=== PATIENT | male | born 1990 | race American Indian/Alaskan Native ===

== ENCOUNTER 2017-01-01 18:54 | Emergency (ER) | payer OTHER ==
[2017-01-01 20:09] LABS: Basophils % (Auto) 0.2 % (0.0-1.8); Eosinophils % (Auto) 2.3 % (0.0-4.3); Hematocrit 42.6 % (35.5-45.6); Hemoglobin 14.3 gm/dl (11.8-15.2); Mean Corpuscular HGB Conc 34 % (32-34); Mean Corpuscular Hemoglobin 31 pg (28-32); Mean Corpuscular Volume 93 fl (84-94); Platelet Count 209 K/mm3 (140-440); Red Blood Count 4.59 M/mm3 (3.65-5.03); Red Cell Distribution Width 13.4 % (13.2-15.2); White Blood Count 8.4 K/mm3 (4.5-11.0)
[2017-01-01 20:28] LABS: Potassium 4.7 mmol/L (3.6-5.0); Sodium 142 mmol/L (137-145)
[2017-01-01 20:29] LABS: Anion Gap 18 mmol/L; Blood Urea Nitrogen 15 mg/dL (9-20); Calcium 8.8 mg/dL (8.4-10.2); Carbon Dioxide 23 mmol/L (22-30); Glucose 91 mg/dL (75-100)
[2017-01-02] MEDS ORDERED: TORADOL IM ONE (01:34)
--- NOTE | 2017-01-02 01:39 | Emergency Department Report ---
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 Describes his pain as sharp and aching in nature sometimes denied any fever or shortness of breath or cough. MD Complaint: chest pain -: Gradual, month(s) Pain Location: substernal, left chest, right chest, epigastric Pain Radiation: back Severity scale (0 -10): 7 Quality: sharp, dull - Related Data Previous Rx's Medication Instructions Recorded Last Taken Type Metaxalone [Skelaxin] 800 mg PO TID #30 tablet 01/02/17 Unknown Rx Naproxen [Naprosyn] 500 mg PO BID #14 tablet 01/02/17 Unknown Rx Allergies Allergy/AdvReac Type Severity Reaction Status Date / Time No Known Allergies Allergy Unverified 01/01/17 19:40 Heart Score - HEART Score History: Slightly suspicious EKG: Normal Age: < 45 Risk factors: No known risk factors Troponin: < normal limit HEART Score: 0 - Critical Actions Critical Actions: 0-3 pts:0.9-1.7%risk of adverse cardiac event.Candidate for discharge ED Review of Systems ROS: Stated complaint: ON JOB INJURY, BACK AND CHEST PAIN Other details as noted in HPI Comment: All other systems reviewed and negative Constitutional: denies: chills, fever Respiratory: denies: cough, shortness of breath Cardiovascular: chest pain. denies: palpitations Endocrine: denies: excessive sweating Gastrointestinal: denies: abdominal pain, nausea, vomiting Genitourinary: denies: dysuria, frequency Neurological: denies: headache, weakness, numbness, paresthesias ED Past Medical Hx - Past Medical History Previous Medical History?: Yes Hx Asthma: Yes - Surgical History Past Surgical History?: No - Social History Smoking Status: Light Tobacco Smoker Substance Use Type: Alcohol - Medications Home Medications: Home Medications Medication Instructions Recorded Confirmed Last Taken Type Metaxalone [Skelaxin] 800 mg PO TID #30 tablet 01/02/17 Unknown Rx Naproxen [Naprosyn] 500 mg PO BID #14 tablet 01/02/17 Unknown Rx ED Physical Exam - General Limitations: No Limitations General appearance: alert, in no apparent distress - Head Head exam: Present: atraumatic, normocephalic - Eye Eye exam: Present: normal appearance - ENT ENT exam: Present: normal exam - Neck Neck exam: Present: normal inspection - Respiratory Respiratory exam: Present: normal lung sounds bilaterally, chest wall tenderness. Absent: respiratory distress, wheezes, rales, rhonchi, decreased breath sounds, prolonged expiratory - Cardiovascular Cardiovascular Exam: Present: regular rate, normal rhythm, normal heart sounds - GI/Abdominal GI/Abdominal exam: Present: soft. Absent: tenderness, guarding, rebound - Back Exam Back exam: Present: normal inspection, muscle spasm. Absent: tenderness, CVA tenderness (R), CVA tenderness (L), paraspinal tenderness, vertebral tenderness - Neurological Exam Neurological exam: Present: alert, oriented X3, CN II-XII intact - Skin Skin exam: Present: warm ED Course Vital Signs 01/01/17 01/01/17 01/01/17 19:35 23:45 23:46 Temperature 98.5 F 98.8 F Pulse Rate 64 52 L 52 L Respiratory 16 18 Rate Blood Pressure 106/66 114/66 114/66 Blood Pressure [Left] O2 Sat by Pulse 100 100 100 Oximetry 01/02/17 01/02/17 01/02/17 00:41 00:45 00:48 Temperature Pulse Rate 59 L 66 66 Respiratory 16 17 Rate Blood Pressure Blood Pressure 120/73 [Left] O2 Sat by Pulse 100 98 Oximetry 01/02/17 01/02/17 01/02/17 01:01 01:31 02:01 Temperature Pulse Rate 61 70 61 Respiratory 16 12 20 Rate Blood Pressure 104/53 104/53 97/56 Blood Pressure [Left] O2 Sat by Pulse 95 98 97 Oximetry - Reevaluation(s) Reevaluation #1: 01/02/17 02:38 Patient stated that he is feeling much better after Toradol shot. I advised patient to follow up with his primary care physician if his condition did not improve he needs to come back to the ER. ED Medical Decision Making - Lab Data Result diagrams: 01/01/17 19:56 01/01/17 19:56 Critical care attestation.: If time is entered above; I have spent that time in minutes in the direct care of this critically ill patient, excluding procedure time. ED Disposition Clinical Impression: Atypical chest pain, Costochondritis, acute Disposition: DC-01 TO HOME OR SELFCARE Is pt being admited?: No Condition: Stable Instructions: Chest Pain (ED), Costochondritis (ED) Referrals: PRIMARY CARE,MD [Primary Care Provider] - 3-5 Days
[2017-01-02 02:06] VITALS: BP 97/56
--- NOTE | 2017-01-02 08:37 | XRay Report ---
CHEST ONE VIEW INDICATION: Chest pain for 3 months, increased over 2-3 days. COMPARISON: 04/20/2008. FINDINGS: Portable, single, frontal chest radiograph demonstrates normal cardiomediastinal silhouette. Clear lungs. Unremarkable bones. Extrinsic EKG leads. CONCLUSION: No acute disease in the chest. Thank you for the opportunity to participate in this patient's care.
== END 2017-01-02 03:04 | disposition home or self-care (01) ==
LOC: ED 18:54
DX: M94.0 Chondrocostal junction syndrome [Tietze] (principal); R07.89 Other chest pain; J45.909 Unspecified asthma, uncomplicated; F17.210 Nicotine dependence, cigarettes, uncomplicated
CPT/HCPCS: 36415; 71010; 80048; 84484; 85025; 93005; 93010; 96372; 99284; J1885

== ENCOUNTER 2021-02-24 16:15 | Inpatient (IN) | payer SELFPAY ==
[2021-02-24] MEDS ORDERED: SODIUM CHLORIDE 0.9% 1000 ML IV SOLN IV ONE (16:28)
[2021-02-24] MEDS ORDERED: HYDROcodone/ACETAMINOPHEN 7.5-325MG TAB PO ONE (16:28)
[2021-02-24] MEDS ORDERED: CLINDAMYCIN 600 MG/50 mL 600 MG/50 ML BAG IV ONE (16:28)
[2021-02-24] MEDS ORDERED: TETANUS,DIPH,PERTUSS(ACELL) VACCINE 0.5 ML SYRINGE IM ONE (16:30)
--- NOTE | 2021-02-24 16:30 | Event Note ---
ED Screening Note ED Screening Note: Patient is a 30-year-old male presents emergency room with complaints of a a bump present to his left calf that occurred 3 to 4 days ago He states he manually expressed it with his hand States that he began having calf pain, swelling, redness around the site where the bump was present He is unsure of his last tetanus immunization This initial assessment/diagnostic orders/clinical plan/treatment(s) is/are subject to change based on patients health status, clinical progression and re- assessment by fellow clinical providers in the ED. Further treatment and workup at subsequent clinical providers discretion. Patient/guardian urged not to elope from the ED as their condition may be serious if not clinically assessed and managed. Initial orders include: code sepsis initiated due to fever, tachycardia with infection present
[2021-02-24] MEDS ORDERED: HYDROmorphone 1 MG/1 ML INJ IV ONE ×3 (16:37→20:12)
[2021-02-24] MEDS ORDERED: cefTRIAXone/NS 1 GM/50 ML 1 GM/50 ML BAG IV ONE (16:37)
[2021-02-24] MEDS ORDERED: ACETAMINOPHEN 325 MG TAB PO ONE (16:37)
--- NOTE | 2021-02-24 16:42 | Emergency Department Report ---
ED Lower Extremity HPI - General Chief Complaint: Extremity Injury, Lower Stated Complaint: LT CALF PAIN Time Seen by Provider: 02/24/21 16:26 Source: patient, RN notes reviewed, old records reviewed Mode of arrival: Wheelchair Limitations: Physical Limitation - History of Present Illness Initial Comments: The patient is a 30-year-old gentleman. 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 The patient presents to the ER today with a complaint of nontraumatic left posterior calf pain, redness, swelling and fever. The patient reports that he had a bite ying on his left posterior calf a few days ago, and he scratched it. Shortly thereafter, he developed redness, pus, streaking, swelling and tightness. The patient denies headache, neck pain, chest pain, abdominal pain, shortness of breath, nausea, vomiting and diarrhea. He denies extremity weakness and numbness. The pain is sharp, throbbing and aching. It is localized to the calf it increases with palpation and range of motion. It decreases with rest and hydromorphone. MD Complaint: other -: days(s) Injury: Leg: Left Type of Injury: unknown (Patient thinks that he scratched the surface) Severity: severe Improves With: rest Worsens With: movement, palpation - Related Data Previous Rx's Medication Instructions Recorded Last Taken Type Ketorolac [Toradol] 10 mg PO TID PRN #15 tablet 02/15/21 Unknown Rx Ondansetron [Zofran Odt] 4 mg PO Q8HR #15 tab.rapdis 02/15/21 Unknown Rx Pantoprazole [Protonix] 40 mg PO QDAY #30 tablet 02/15/21 Unknown Rx Allergies Allergy/AdvReac Type Severity Reaction Status Date / Time No Known Allergies Allergy Verified 02/24/21 16:17 ED Review of Systems ROS: Stated complaint: LT CALF PAIN Other details as noted in HPI Constitutional: fever, malaise, weakness Eyes: denies: eye discharge ENT: denies: epistaxis Respiratory: denies: cough Cardiovascular: denies: chest pain Gastrointestinal: denies: abdominal pain Musculoskeletal: arthralgia, myalgia Skin: rash, lesions Psychiatric: anxiety ED Past Medical Hx - Past Medical History Hx Asthma: Yes - Surgical History Past Surgical History?: No - Social History Smoking Status: Current Every Day Smoker - Medications Home Medications: Home Medications Medication Instructions Recorded Confirmed Last Taken Type Ketorolac [Toradol] 10 mg PO TID PRN #15 tablet 02/15/21 Unknown Rx Ondansetron [Zofran Odt] 4 mg PO Q8HR #15 tab.rapdis 02/15/21 Unknown Rx Pantoprazole [Protonix] 40 mg PO QDAY #30 tablet 02/15/21 Unknown Rx ED Physical Exam - General Limitations: Physical Limitation General appearance: alert, anxious, in distress - Head Head exam: Present: atraumatic, normocephalic - Eye Eye exam: Present: normal appearance, EOMI. Absent: nystagmus - ENT ENT exam: Present: normal exam, normal orophraynx, mucous membranes moist, normal external ear exam - Neck Neck exam: Present: normal inspection, full ROM. Absent: tenderness, meningismus - Respiratory Respiratory exam: Present: normal lung sounds bilaterally. Absent: respiratory distress, wheezes, rales, rhonchi, stridor, decreased breath sounds - Cardiovascular Cardiovascular Exam: Present: normal rhythm, tachycardia, normal heart sounds. Absent: bradycardia, irregular rhythm, systolic murmur, diastolic murmur, rubs, gallop - GI/Abdominal GI/Abdominal exam: Present: soft. Absent: distended, tenderness, guarding, sumaya ound, rigid, pulsatile mass - Rectal Rectal exam: Present: deferred - Extremities Exam Extremities exam: Present: full ROM, tenderness (Left posterior calf is tender, erythematous and tense. There is no pain with passive range of motion of the great toe, ankle, knee, or hip.), normal capillary refill, calf tenderness (The left calf is tender), other (2+ pulses noted in the bilateral upper and lower extremities. There is no long bony tenderness. The bilateral upper extremities and right lower extremity are nontender. The muscular compartments are soft.). Absent: normal inspection (There is left calf erythema, induration and tenderness.) - Back Exam Back exam: Present: normal inspection. Absent: tenderness, CVA tenderness (R), CVA tenderness (L), paraspinal tenderness, vertebral tenderness - Neurological Exam Neurological exam: Present: alert, other (No facial droop. Tongue midline. Extraocular movements intact bilaterally. Facial sensation intact to light touch in V1, V2, V3 distribution bilaterally. 5 and a 5 strength in 4 extremities. Sensation intact to light touch in 4 extremities.). Absent: motor sensory deficit - Psychiatric Psychiatric exam: Present: anxious - Skin Skin exam: Present: warm (Punctate bite lesion noted on the left posterior calf), erythema, other (Induration) - Other Other exam information: The left posterior proximal calf muscle is tense. The anterior tibial compartme nts are nontender. The distal lower extremity is nontender. There is no pain with passive range of motion of the foot, ankle, toe, or knee. ED Course Vital Signs 02/24/21 16:21 Temperature 101.6 F H Pulse Rate 114 H Respiratory 18 Rate Blood Pressure 123/74 O2 Sat by Pulse 96 Oximetry - Reevaluation(s) Reevaluation #1: 02/24/21 18:28 Differential diagnosis, including but not limited to: Cellulitis, abscess, myositis, necrotizing fasciitis Assessment and plan: 30-year-old gentleman with left posterior calf redness, tenderness, fever, leukocytosis, normal CK, no pain with passive range of motion of the joint, ankle, foot, knee, or toe, compartment syndrome is less likely, cellulitis and perhaps myositis are more likely. Patient ruling in for sepsis criteria manifested by fever, tachycardia, leukocytosis, and clinical concern for infection. Code sepsis called overhead. Patient to be medicated empirically with ceftriaxone and vancomycin. IV fluids ordered, Tylenol ordered, CT scan of the left lower extremity has been ordered to assess for surgical pathology. Patient to be admitted to the medical service once initial diagnostics have resulted. 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 Reassess after CT scan of the left lower extremity has been resulted. 02/24/21 19:30 CT scan left lower extremity reviewed and appreciated. No abscess or fluid collection is noted. Consistent with cellulitis. Contacted general surgeon on-call, Dr. Chen. Discussed the patient's history, physical, laboratory studies, CT scan findings and clinical impression. He will follow in consultation. Reassessed the patient. He feels improved. Still having pain and tenderness, but examination improved. Still not having any pain with passive range of motion of the toes. At this point time, given CT scan findings, normal lactic acid, normal CK, lack of pain with passive range of motion, neurovascular integrity and appropriate pulses, I do not suspect compartment syndrome at this time. Patient is agreeable to admission hospitalization. Hospital physician, Dr. Kristen Bunch to admit to [facility] ED Lower Extremity MDM - Lab Data Result diagrams: 02/24/21 17:11 02/24/21 17:11 Vital Signs 02/24/21 16:21 Temperature 101.6 F H Pulse Rate 114 H Respiratory 18 Rate Blood Pressure 123/74 O2 Sat by Pulse 96 Oximetry Lab Results 02/24/21 02/24/21 02/24/21 Range/Units 17:11 17:11 17:22 WBC 19.6 H (4.5-11.0) K/mm3 RBC 4.41 (3.65-5.03) M/mm3 Hgb 14.1 (11.8-15.2) gm/dl Hct 42.1 (35.5-45.6) % MCV 96 H (84-94) fl MCH 32 (28-32) pg MCHC 34 (32-34) % RDW 13.4 (13.2-15.2) % Plt Count 194 (140-440) K/mm3 Lymph % (Auto) 5.0 L (13.4-35.0) % [place] % (Auto) 13.3 H (0.0-7.3) % Eos % (Auto) 0.0 (0.0-4.3) % Baso % (Auto) 0.2 (0.0-1.8) % Lymph # (Auto) 1.0 L (1.2-5.4) K/mm3 [place] # (Auto) 2.6 H (0.0-0.8) K/mm3 Eos # (Auto) 0.0 (0.0-0.4) K/mm3 Baso # (Auto) 0.0 (0.0-0.1) K/mm3 Seg Neutrophils % 81.5 H (40.0-70.0) % Seg Neutrophils # 16.0 H (1.8-7.7) K/mm3 Sodium 135 L (137-145) mmol/L Potassium 3.9 (3.6-5.0) mmol/L Chloride 99.3 (98-107) mmol/L Carbon Dioxide 22 (22-30) mmol/L Anion Gap 18 mmol/L BUN 7 L (9-20) mg/dL Creatinine 0.8 (0.8-1.3) mg/dL Estimated GFR > 60 ml/min BUN/Creatinine Ratio 9 % Glucose 106 H (75-100) mg/dL Lactic Acid 1.80 (0.7-2.0) mmol/L Calcium 9.5 (8.4-10.2) mg/dL Magnesium 1.70 (1.7-2.3) mg/dL Total Bilirubin 1.10 (0.1-1.2) mg/dL AST 13 (5-40) units/L ALT 9 (7-56) units/L Alkaline Phosphatase 63 (35-129) units/L Total Creatine Kinase 161 (55-170) units/L Total Protein 6.9 (6.3-8.2) g/dL Albumin 4.1 (3.9-5) g/dL Albumin/Globulin Ratio 1.5 % - Radiology Data Radiology results: pending, report reviewed, image reviewed DUPLEX DOPPLER LOWER EXTREMITY VEINS, LEFT INDICATION / CLINICAL INFORMATION: Left leg pain and swelling for 4 days. TECHNIQUE: Duplex doppler imaging was performed through the veins of the left lower extremity using venous compression and other maneuvers. COMPARISON: None available. FINDINGS: LEFT COMMON FEMORAL VEIN: Negative. LEFT FEMORAL VEIN: Negative. LEFT POPLITEAL VEIN: Negative. LEFT CALF VEINS: Negative. ADDITIONAL FINDINGS: No abnormal mass or fluid collection is seen. IMPRESSION: No sonographic evidence for DVT in the left lower extremity. Signer Name: Elton Garza MD Signed: 02/24/2021 5:23 PM Workstation Name: [id number] CT LEFT lower leg WITHOUT CONTRAST INDICATION / CLINICAL INFORMATION: left leg pain, infection. TECHNIQUE: All CT scans at this location are performed using CT dose reduction for ALARA by means of automated exposure control. 100 cc of Omnipaque 300 COMPARISON: None available. FINDINGS: BONES: No fracture. No osseous lesion. No periosteal reaction. MUSCLES / TENDONS: No significant abnormality. SOFT TISSUES: There is edema in the soft tissue along the periphery of the gastrocnemius and in the subcutaneous fat. No discrete fluid collection is seen. No abnormal enhancement is seen. VISUALIZED JOINTS: No significant abnormality. ADDITIONAL FINDINGS: None. IMPRESSION: 1. There is edema in the soft tissues along the posterior aspect of the gastrocnemius muscle and there is edema in the subcutaneous fat. No enhancing fluid collection is seen. Signer Name: Brian Wan MD Signed: 02/24/2021 6:06 PM Workstation Name: [id number] Critical Care Time: Yes Critical care time in (mins) excluding proc time.: 35 Critical care attestation.: If time is entered above; I have spent that time in minutes in the direct care of this critically ill patient, excluding procedure time. ED Disposition Clinical Impression: Left leg pain, Sepsis, Left leg cellulitis Disposition: ADMITTED INPATIENT Is pt being admited?: Yes Does the pt Need Aspirin: No Condition: Good Referrals: PRIMARY CARE, [Primary Care Provider] - 3-5 Days
[2021-02-24] MEDS ORDERED: VANCOMYCIN/NS 1 GM/250 ML 1 GM/250 ML BAG IV NR (17:00)
[2021-02-24 17:44] LABS: Basophils % (Auto) 0.2 % (0.0-1.8); Hematocrit 42.1 % (35.5-45.6); Hemoglobin 14.1 gm/dl (11.8-15.2); Mean Corpuscular HGB Conc 34 % (32-34); Mean Corpuscular Volume 96 fl (84-94); Monocytes # (Auto) 2.6 K/mm3 (0.0-0.8); Monocytes % (Auto) 13.3 % (0.0-7.3); Platelet Count 194 K/mm3 (140-440); Red Blood Count 4.41 M/mm3 (3.65-5.03); Red Cell Distribution Width 13.4 % (13.2-15.2)
[2021-02-24 17:57] LABS: Alanine Aminotransferase 9 units/L (7-56); Albumin 4.1 g/dL (3.9-5); BUN/Creatinine Ratio 9; Blood Urea Nitrogen 7 mg/dL (9-20); Calcium 9.5 mg/dL (8.4-10.2); Hemolysis Index 4
--- NOTE | 2021-02-24 18:28 | Vascular Lab Report ---
DUPLEX DOPPLER LOWER EXTREMITY VEINS, LEFT INDICATION / CLINICAL INFORMATION: Left leg pain and swelling for 4 days. TECHNIQUE: Duplex doppler imaging was performed through the veins of the left lower extremity using venous compr ession and other maneuvers. COMPARISON: None available. FINDINGS: LEFT COMMON FEMORAL VEIN: Negative. LEFT FEMORAL VEIN: Negative. LEFT POPLITEAL VEIN: Negative. LEFT CALF VEINS: Negative. ADDITIONAL FINDINGS: No abnormal mass or fluid collection is seen. IMPRESSION: No sonographic evidence for DVT in the left lower extremity. Signer Name: Elton Garza MD Signed: 02/24/2021 6:23 PM Workstation Name: [id number]
--- NOTE | 2021-02-24 19:11 | Cat Scan Report ---
CT LEFT lower leg WITHOUT CONTRAST INDICATION / CLINICAL INFORMATION: left leg pain, infection. TECHNIQUE: All CT scans at this location are performed using CT dose reduction for ALARA by means of automated exposure control. 100 cc of Omnipaque 300 COMPARISON: None available. FINDINGS: BONES: No fracture. No osseous lesion. No periosteal reaction. MUSCLES / TENDONS: No significant abnormality. SOFT TISSUES: There is edema in the soft tissue along the periphery of the gastrocnemius and in the s ubcutaneous fat. No discrete fluid collection is seen. No abnormal enhancement is seen. VISUALIZED JOINTS: No significant abnormality. ADDITIONAL FINDINGS: None. IMPRESSION: 1. There is edema in the soft tissues along the posterior aspect of the gastrocnemius muscle and ther e is edema in the subcutaneous fat. No enhancing fluid collection is seen. Signer Name: Brian Wan MD Signed: 02/24/2021 7:06 PM Workstation Name: [id number]
--- NOTE | 2021-02-24 20:30 | History and Physical Report ---
History of Present Illness Date of examination: 02/24/21 Date of admission: 02/24/21 Chief complaint: Pain and swelling left lower extremity for 2 to 3 days History of present illness: 30-year-old -[place] male with no significant past medical history except for asthma comes in for left lower extremity swelling below the knee associated with redness and severe pain pain is about 10 on a scale of 1-10 there is a small puncture wound with drainage. Erythema present on the upper calf to the Achilles tendon. Tight and swollen. No fever or chills. - Past Medical History Hx Asthma: Yes - Surgical History Past Surgical History?: No - Social History Smoking Status: Current Every Day Smoker - Medications Home Medications: Home Medications Medication Instructions Recorded Confirmed Last Taken Type Ketorolac [Toradol] 10 mg PO TID PRN #15 tablet 02/15/21 Unknown Rx Ondansetron [Zofran Odt] 4 mg PO Q8HR #15 tab.rapdis 02/15/21 Unknown Rx Pantoprazole [Protonix] 40 mg PO QDAY #30 tablet 02/15/21 Unknown Rx Review of Systems ROS: Stated complaint: LT CALF PAIN Other details as noted in HPI Constitutional: fever, malaise, weakness Eyes: denies: eye discharge ENT: denies: epistaxis Respiratory: denies: cough Cardiovascular: denies: chest pain Gastrointestinal: denies: abdominal pain Musculoskeletal: arthralgia, myalgia Skin: rash, lesions Psychiatric: anxiety Medications and Allergies Allergies Allergy/AdvReac Type Severity Reaction Status Date / Time No Known Allergies Allergy Verified 02/24/21 16:17 Home Medications Medication Instructions Recorded Confirmed Last Taken Type Ketorolac [Toradol] 10 mg PO TID PRN #15 tablet 02/15/21 02/25/21 Unknown Rx Ondansetron [Zofran Odt] 4 mg PO Q8HR #15 tab.rapdis 02/15/21 02/25/21 Unknown Rx Pantoprazole [Protonix] 40 mg PO QDAY #30 tablet 02/15/21 02/25/21 Unknown Rx Exam - Constitutional Vitals: Temp Pulse Resp BP Pulse Ox 101.6 F H 114 H 18 123/74 96 02/24/21 16:21 02/24/21 16:21 02/24/21 16:21 02/24/21 16:21 02/24/21 16:21 General appearance: Present: no acute distress, well-nourished - EENT Eyes: Present: PERRL ENT: hearing intact, clear oral mucosa - Neck Neck: Present: supple, normal ROM - Respiratory Respiratory effort: normal Respiratory: bilateral: CTA - Cardiovascular Heart rate: 78 Rhythm: regular Heart Sounds: Present: S1 & S2. Absent: rub, click - Extremities Extremities: pulses symmetrical, No edema, abnormal (Left lower extremity swollen from below the knee posteriorly up to the ankle Achilles tendon warm to touch red. Small amount of drainage address small puncture wound on the proxima l part of the left calf.) Peripheral Pulses: within normal limits - Abdominal General gastrointestinal: Present: soft, non-tender, non-distended, normal bowel sounds Male genitourinary: Present: normal - Integumentary Integumentary: Present: clear, warm, dry - Musculoskeletal Musculoskeletal: gait normal, strength equal bilaterally - Psychiatric Psychiatric: appropriate mood/affect, intact judgment & insight - Neurologic Neurologic: CNII-XII intact, moves all extremities Results - Labs CBC & Chem 7: 02/25/21 04:40 02/25/21 04:00 Labs: Laboratory Last Values WBC 19.6 K/mm3 (4.5-11.0) H 02/24/21 17:11 RBC 4.41 M/mm3 (3.65-5.03) 02/24/21 17:11 Hgb 14.1 gm/dl (11.8-15.2) 02/24/21 17:11 Hct 42.1 % (35.5-45.6) 02/24/21 17:11 MCV 96 fl (84-94) H 02/24/21 17:11 MCH 32 pg (28-32) 02/24/21 17:11 MCHC 34 % (32-34) 02/24/21 17:11 RDW 13.4 % (13.2-15.2) 02/24/21 17:11 Plt Count 194 K/mm3 (140-440) 02/24/21 17:11 Lymph % (Auto) 5.0 % (13.4-35.0) L 02/24/21 17:11 [place] % (Auto) 13.3 % (0.0-7.3) H 02/24/21 17:11 Eos % (Auto) 0.0 % (0.0-4.3) 02/24/21 17:11 Baso % (Auto) 0.2 % (0.0-1.8) 02/24/21 17:11 Lymph # (Auto) 1.0 K/mm3 (1.2-5.4) L 02/24/21 17:11 [place] # (Auto) 2.6 K/mm3 (0.0-0.8) H 02/24/21 17:11 Eos # (Auto) 0.0 K/mm3 (0.0-0.4) 02/24/21 17:11 Baso # (Auto) 0.0 K/mm3 (0.0-0.1) 02/24/21 17:11 Seg Neutrophils % 81.5 % (40.0-70.0) H 02/24/21 17:11 Seg Neutrophils # 16.0 K/mm3 (1.8-7.7) H 02/24/21 17:11 Sodium 135 mmol/L (137-145) L 02/24/21 17:11 Potassium 3.9 mmol/L (3.6-5.0) 02/24/21 17:11 Chloride 99.3 mmol/L (98-107) 02/24/21 17:11 Carbon Dioxide 22 mmol/L (22-30) 02/24/21 17:11 Anion Gap 18 mmol/L 02/24/21 17:11 BUN 7 mg/dL (9-20) L 02/24/21 17:11 Creatinine 0.8 mg/dL (0.8-1.3) 02/24/21 17:11 Estimated GFR > 60 ml/min 02/24/21 17:11 BUN/Creatinine Ratio 9 % 02/24/21 17:11 Glucose 106 mg/dL (75-100) H 02/24/21 17:11 Lactic Acid 1.80 mmol/L (0.7-2.0) 02/24/21 17:22 Calcium 9.5 mg/dL (8.4-10.2) 02/24/21 17:11 Magnesium 1.70 mg/dL (1.7-2.3) 02/24/21 17:11 Total Bilirubin 1.10 mg/dL (0.1-1.2) 02/24/21 17:11 AST 13 units/L (5-40) 02/24/21 17:11 ALT 9 units/L (7-56) 02/24/21 17:11 Alkaline Phosphatase 63 units/L (35-129) 02/24/21 17:11 Total Creatine Kinase 161 units/L (55-170) 02/24/21 17:11 Total Protein 6.9 g/dL (6.3-8.2) 02/24/21 17:11 Albumin 4.1 g/dL (3.9-5) 02/24/21 17:11 Albumin/Globulin Ratio 1.5 % 02/24/21 17:11 Short CBC 02/24/21 02/25/21 Range/Units 17:11 04:40 WBC 19.6 H 20.3 H (4.5-11.0) K/mm3 Hgb 14.1 13.2 (11.8-15.2) gm/dl Hct 42.1 40.4 (35.5-45.6) % Plt Count 194 185 (140-440) K/mm3 BMP 02/24/21 02/25/21 17:11 04:00 Sodium 135 L 136 L Potassium 3.9 3.9 Chloride 99.3 101.3 Carbon Dioxide 22 22 BUN 7 L 6 L Creatinine 0.8 0.8 Glucose 106 H 115 H Calcium 9.5 8.9 Cardiac Enzymes 02/24/21 Range/Units 17:11 Total Creatine Kinase 161 (55-170) units/L Liver Function 02/24/21 02/25/21 Range/Units 17:11 04:00 Total Bilirubin 1.10 1.30 H (0.1-1.2) mg/dL AST 13 13 (5-40) units/L ALT 9 9 (7-56) units/L Alkaline Phosphatase 63 96 (35-129) units/L Albumin 4.1 3.7 L (3.9-5) g/dL - Imaging and Cardiology Imaging and Cardiology: Duplex scan left lower extremity veins No radiographic evidence for DVT in the left lower extremity Lower extremity CT There is edema of the soft tissues along the posterior aspect of the gastrocnemius muscle and there is edema in the subcutaneous fat No enhancing fluid collection is seen. Assessment and Plan Advance Directives: Yes (Full code) Plan of care discussed with patient/family: Yes - Patient Problems (1) Sepsis Current Visit: Yes Status: Acute Plan to address problem: Secondary infection left lower extremities with cellulitis/abscess Aggressive antibiotic therapy No signs of necrotizing fasciitis (2) Left leg cellulitis Current Visit: Yes Status: Acute Plan to address problem: Patient initiated on IV vancomycin and IV Unasyn May need incision and drainage Surgery consult requested (3) DVT prophylaxis Current Visit: No Status: Acute Plan to address problem: Continue anticoagulation and GI prophylaxis
[2021-02-24] MEDS ORDERED: METOCLOPRAMIDE 10 MG/2 ML INJ IV PRN (20:31)
[2021-02-24] MEDS ORDERED: VANCOMYCIN PHARMACY TO DOSE IV SCH (21:00)
[2021-02-24] MEDS ORDERED: VANCOMYCIN 1,250 MG in SODIUM CHLORIDE 0.9% 250ML 250 ML IV ONE (22:00)
[2021-02-24] MEDS: HEPARIN 5,000 UNIT/1 ML VIAL SUB-Q SCH (22:32)
[2021-02-24] MEDS: SODIUM CHLORIDE 0.9% 1000 ML 1,000 ML IV SCH (22:33)
[2021-02-24] MEDS: AMPICILLIN/SULBACTA 3GM/100ML 3 GM/100 ML BAG IV SCH (23:59)
[2021-02-25] MEDS: ACETAMINOPHEN 325 MG TAB PO PRN ×3 (00:24→16:53)
[2021-02-25 05:05] LABS: Hematocrit 40.4 % (35.5-45.6); Hemoglobin 13.2 gm/dl (11.8-15.2); Mean Corpuscular HGB Conc 33 % (32-34); Mean Corpuscular Volume 94 fl (84-94); Platelet Count 185 K/mm3 (140-440); Red Cell Distribution Width 13.2 % (13.2-15.2)
[2021-02-25] MEDS: AMPICILLIN/SULBACTA 3GM/100ML 3 GM/100 ML BAG IV SCH ×4 (05:05→23:01)
[2021-02-25 05:29] LABS: BUN/Creatinine Ratio 6
[2021-02-25 05:31] LABS: Alanine Aminotransferase 9 units/L (7-56); Albumin 3.7 g/dL (3.9-5); Blood Urea Nitrogen 6 mg/dL (9-20); Calcium 8.9 mg/dL (8.4-10.2); Hemolysis Index 0
[2021-02-25] MEDS ORDERED: VANCOMYCIN/NS 1 GM/250 ML 1 GM/250 ML BAG IV SCH (06:00)
[2021-02-25 07:52] LABS: Band Neutrophils # (Manual) 0.4 K/mm3; Total Cells Counted 100
[2021-02-25 07:53] LABS: Platelet Estimate Consistent w Auto; RBC Morphology Normal
[2021-02-25] MEDS: HEPARIN 5,000 UNIT/1 ML VIAL SUB-Q SCH ×2 (09:04→22:15)
[2021-02-25] MEDS: oxyCODONE /ACETAMINOPHEN 5-325MG TAB PO PRN (09:47)
[2021-02-25] MEDS: SODIUM CHLORIDE 0.9% 1000 ML 1,000 ML IV SCH (12:26)
--- NOTE | 2021-02-25 15:54 | Progress Note ---
Assessment and Plan -- Sepsis Secondary infection left lower extremities with cellulitis/abscess Aggressive antibiotic therapy No signs of necrotizing fasciitis -- Left leg cellulitis Patient initiated on IV vancomycin and IV Unasyn May need incision and drainage Surgery consult requested -- DVT prophylaxis Continue anticoagulation and GI prophylaxis Daily clinical course: 02/25/21: cont empiric abx, follow cx, follow surgery recommendation Subjective Date of service: 02/25/21 Interval history: Patient seen and examined. Medical records and medication list reviewed. No acute event overnight noted by the RN. Patient denies any chest pain or difficulty breathing. Patient is tolerating diet. Continue to complains of left leg swelling and pain, states unable to put wt. on his left foot Discussed plan of care at bedside with patient. Objective - Exam Narrative Exam: GENERAL: well-developed and well-nourished AAM lying on bed appeared to be in no discomfort. HEENT: Normocephalic. Atraumatic. No conjunctival congestion or icterus. Patient has moist mucous membranes. NECK: Supple. Trachea midline. CHEST/LUNGS: Clear to auscultated bilaterally, breathing nonlabored. No wheezes crackles or rhonchi. HEART/CARDIOVASCULAR: Regular in rate and rhythm. S1 and S2 positive. ABDOMEN: Abdomen is soft, nontender. Patient has normal bowel sounds. SKIN: There is no rash. Warm and dry. NEURO: No focal motor deficit. Follows command. MUSCULOSKELETAL: No joint effusion or tenderness. PSYCH: Cooperative. EXTRIMITY: Left lower extremity swollen from below the knee posteriorly up to the ankle Achilles tendon warm to touch red. Small amount of drainage address small puncture wound on the proximal part of the left calf. - Constitutional Vitals: Vital Signs - 12hr 02/25/21 02/25/21 02/25/21 04:23 11:45 11:50 Temperature 102.0 F H 100.8 F H Pulse Rate 116 H 103 H Respiratory 18 16 Rate Blood Pressure 108/68 111/73 O2 Sat by Pulse 100 97 99 Oximetry - Labs CBC & Chem 7: 02/25/21 04:40 02/25/21 04:00 Labs: Abnormal lab results 02/24/21 02/24/21 02/25/21 Range/Units 17:11 17:11 04:00 WBC 19.6 H (4.5-11.0) K/mm3 MCV 96 H (84-94) fl Lymph % (Auto) 5.0 L (13.4-35.0) % [place] % (Auto) 13.3 H (0.0-7.3) % Lymph # (Auto) 1.0 L (1.2-5.4) K/mm3 [place] # (Auto) 2.6 H (0.0-0.8) K/mm3 Seg Neutrophils % 81.5 H (40.0-70.0) % Seg Neuts % (Manual) (40.0-70.0) % Lymphocytes % (Manual) (13.4-35.0) % Monocytes % (Manual) (0.0-7.3) % Seg Neutrophils # 16.0 H (1.8-7.7) K/mm3 Seg Neutrophils # Man (1.8-7.7) K/mm3 Monocytes # (Manual) (0.0-0.8) K/mm3 Sodium 135 L 136 L (137-145) mmol/L BUN 7 L 6 L (9-20) mg/dL Glucose 106 H 115 H (75-100) mg/dL Total Bilirubin 1.30 H (0.1-1.2) mg/dL Albumin 3.7 L (3.9-5) g/dL 02/25/21 Range/Units 04:40 WBC 20.3 H (4.5-11.0) K/mm3 MCV (84-94) fl Lymph % (Auto) (13.4-35.0) % [place] % (Auto) (0.0-7.3) % Lymph # (Auto) (1.2-5.4) K/mm3 [place] # (Auto) (0.0-0.8) K/mm3 Seg Neutrophils % (40.0-70.0) % Seg Neuts % (Manual) 75.0 H (40.0-70.0) % Lymphocytes % (Manual) 6.0 L (13.4-35.0) % Monocytes % (Manual) 17.0 H (0.0-7.3) % Seg Neutrophils # (1.8-7.7) K/mm3 Seg Neutrophils # Man 15.2 H (1.8-7.7) K/mm3 Monocytes # (Manual) 3.5 H (0.0-0.8) K/mm3 Sodium (137-145) mmol/L BUN (9-20) mg/dL Glucose (75-100) mg/dL Total Bilirubin (0.1-1.2) mg/dL Albumin (3.9-5) g/dL
--- NOTE | 2021-02-25 16:50 | Consultation ---
History of Present Illness Consult date: 02/25/21 - History of present illness History of present illness: 30 yo male with several day h/o left leg swelling and pain. Popped a pimple on his left leg about a week ago. Past History Past Medical History: other (Asthma) Medications and Allergies Allergies Allergy/AdvReac Type Severity Reaction Status Date / Time No Known Allergies Allergy Verified 02/24/21 16:17 Home Medications Medication Instructions Recorded Confirmed Last Taken Type Ketorolac [Toradol] 10 mg PO TID PRN #15 tablet 02/15/21 02/25/21 Unknown Rx Ondansetron [Zofran Odt] 4 mg PO Q8HR #15 tab.rapdis 02/15/21 02/25/21 Unknown Rx Pantoprazole [Protonix] 40 mg PO QDAY #30 tablet 02/15/21 02/25/21 Unknown Rx Active Meds: Active Medications Acetaminophen (Acetaminophen 325 Mg Tab) 650 mg PO Q4H PRN PRN Reason: Pain MILD(1-3)/Fever >100.5/RUBI Last Admin: 02/25/21 05:05 Dose: 650 mg Documented by: Heparin Sodium (Porcine) (Heparin 5,000 Unit/1 Ml Vial) 5,000 unit SUB-Q Q12HR ZAN Last Admin: 02/25/21 09:04 Dose: 5,000 unit Documented by: Hydromorphone HCl (Hydromorphone 1 Mg/1 Ml Inj) 0.5 mg IV Q3H PRN PRN Reason: Pain , Severe (7-10) Sodium Chloride (Nacl 0.9% 1000 Ml) 1,000 mls @ 75 mls/hr IV DIRECT ZAN Last Admin: 02/25/21 12:26 Dose: 75 mls/hr Documented by: Ampicillin Sodium/Sulbactam Sodium (Unasyn/Ns 3 Gm/100 Ml) 3 gm in 100 mls @ 100 mls/hr IV Q6HR ZAN; Protocol Last Admin: 02/25/21 12:22 Dose: 100 mls/hr Documented by: Vancomycin HCl 1,250 mg/ (Sodium Chloride) 275 mls @ 166.667 mls/hr IV Q12H ZAN Metoclopramide HCl (Metoclopramide 10 Mg/2 Ml Inj) 10 mg IV Q6H PRN PRN Reason: Nausea And Vomiting Ondansetron HCl (Ondansetron 4 Mg/2 Ml Inj) 4 mg IV Q8H PRN PRN Reason: Nausea And Vomiting Oxycodone/Acetaminophen (Oxycodone /Acetaminophen 5-325mg Tab) 1 tab PO Q6H PRN PRN Reason: Pain, Moderate (4-6) Last Admin: 02/25/21 09:47 Dose: 1 tab Documented by: Sodium Chloride (Sodium Chloride 0.9% 10 Ml Flush Syringe) 10 ml IV BID ZAN Last Admin: 02/25/21 09:05 Dose: 10 ml Documented by: Sodium Chloride (Sodium Chloride 0.9% 10 Ml Flush Syringe) 10 ml IV PRN PRN PRN Reason: LINE FLUSH Review of Systems All systems: negative (none) Exam Vital Signs Temp Pulse Resp BP Pulse Ox 101.6 F H 114 H 18 123/74 96 02/24/21 16:21 02/24/21 16:21 02/24/21 16:21 02/24/21 16:21 02/24/21 16:21 - General physical appearance Positive: well developed, well nourished, no distress - Eyes Positive: PERRL, normal occular movement - ENT Positive: normal pinna, normal nares, normal mucosa, no hearing loss, no congestion - Neck Positive: no masses, no bruits, trachea midline, no venous distension - Respiratory Positive: normal expansion, normal respiratory effort, clear to auscultation - Cardiovascular Rhythm: regular Heart Sounds: Present: S1 & S2. Absent: rub, click - Extremities Extremities: no ischemia, pulses symmetrical Extremity abnormal: other (The left leg is moderately edematous with diffuse tenderness. Khalif's sign is negative. No pain on passive flexion/extension of the knee or foot.) - Breasts Breasts: normal, no mass, no skin changes - Abdomen Abdomen: Present: soft, bowel sounds normal. Absent: tender, distended Hernia: none - Genitourinary Male Genitourinary: normal Female Genitourinary: normal - Integumentary no rash, no growths, no abnormal pigmentation - Neurologic Neurologic: alert and oriented to time, place and person, motor strength and se nsation are grossly intact - Musculoskeletal normal gait, normal posture - Psychiatric Psychiatric: appropriate mood/affect, intact judgment & insight Results - Labs 02/25/21 04:40 02/25/21 04:00 Abnormal lab results 02/24/21 02/24/21 02/25/21 Range/Units 17:11 17:11 04:00 WBC 19.6 H (4.5-11.0) K/mm3 MCV 96 H (84-94) fl Lymph % (Auto) 5.0 L (13.4-35.0) % [place] % (Auto) 13.3 H (0.0-7.3) % Lymph # (Auto) 1.0 L (1.2-5.4) K/mm3 [place] # (Auto) 2.6 H (0.0-0.8) K/mm3 Seg Neutrophils % 81.5 H (40.0-70.0) % Seg Neuts % (Manual) (40.0-70.0) % Lymphocytes % (Manual) (13.4-35.0) % Monocytes % (Manual) (0.0-7.3) % Seg Neutrophils # 16.0 H (1.8-7.7) K/mm3 Seg Neutrophils # Man (1.8-7.7) K/mm3 Monocytes # (Manual) (0.0-0.8) K/mm3 Sodium 135 L 136 L (137-145) mmol/L BUN 7 L 6 L (9-20) mg/dL Glucose 106 H 115 H (75-100) mg/dL Total Bilirubin 1.30 H (0.1-1.2) mg/dL Albumin 3.7 L (3.9-5) g/dL 02/25/21 Range/Units 04:40 WBC 20.3 H (4.5-11.0) K/mm3 MCV (84-94) fl Lymph % (Auto) (13.4-35.0) % [place] % (Auto) (0.0-7.3) % Lymph # (Auto) (1.2-5.4) K/mm3 [place] # (Auto) (0.0-0.8) K/mm3 Seg Neutrophils % (40.0-70.0) % Seg Neuts % (Manual) 75.0 H (40.0-70.0) % Lymphocytes % (Manual) 6.0 L (13.4-35.0) % Monocytes % (Manual) 17.0 H (0.0-7.3) % Seg Neutrophils # (1.8-7.7) K/mm3 Seg Neutrophils # Man 15.2 H (1.8-7.7) K/mm3 Monocytes # (Manual) 3.5 H (0.0-0.8) K/mm3 Sodium (137-145) mmol/L BUN (9-20) mg/dL Glucose (75-100) mg/dL Total Bilirubin (0.1-1.2) mg/dL Albumin (3.9-5) g/dL Diabetes panel 02/24/21 02/25/21 02/25/21 Range/Units 17:11 04:00 04:45 Sodium 135 L 136 L (137-145) mmol/L Potassium 3.9 3.9 (3.6-5.0) mmol/L Chloride 99.3 101.3 (98-107) mmol/L Carbon Dioxide 22 22 (22-30) mmol/L BUN 7 L 6 L (9-20) mg/dL Creatinine 0.8 0.8 (0.8-1.3) mg/dL Glucose 106 H 115 H (75-100) mg/dL Hemoglobin A1c 5.1 (4-6) % Calcium 9.5 8.9 (8.4-10.2) mg/dL AST 13 13 (5-40) units/L ALT 9 9 (7-56) units/L Alkaline Phosphatase 63 96 (35-129) units/L Total Protein 6.9 6.7 (6.3-8.2) g/dL Albumin 4.1 3.7 L (3.9-5) g/dL Calcium panel 02/24/21 02/25/21 Range/Units 17:11 04:00 Calcium 9.5 8.9 (8.4-10.2) mg/dL Albumin 4.1 3.7 L (3.9-5) g/dL Pituitary panel 02/24/21 02/25/21 Range/Units 17:11 04:00 Sodium 135 L 136 L (137-145) mmol/L Potassium 3.9 3.9 (3.6-5.0) mmol/L Chloride 99.3 101.3 (98-107) mmol/L Carbon Dioxide 22 22 (22-30) mmol/L BUN 7 L 6 L (9-20) mg/dL Creatinine 0.8 0.8 (0.8-1.3) mg/dL Glucose 106 H 115 H (75-100) mg/dL Calcium 9.5 8.9 (8.4-10.2) mg/dL Adrenal panel 02/24/21 02/25/21 Range/Units 17:11 04:00 Sodium 135 L 136 L (137-145) mmol/L Potassium 3.9 3.9 (3.6-5.0) mmol/L Chloride 99.3 101.3 (98-107) mmol/L Carbon Dioxide 22 22 (22-30) mmol/L BUN 7 L 6 L (9-20) mg/dL Creatinine 0.8 0.8 (0.8-1.3) mg/dL Glucose 106 H 115 H (75-100) mg/dL Calcium 9.5 8.9 (8.4-10.2) mg/dL Total Bilirubin 1.10 1.30 H (0.1-1.2) mg/dL AST 13 13 (5-40) units/L ALT 9 9 (7-56) units/L Alkaline Phosphatase 63 96 (35-129) units/L Total Protein 6.9 6.7 (6.3-8.2) g/dL Albumin 4.1 3.7 L (3.9-5) g/dL - Imaging Additional studies: 1) CT of LLE reviewed 2) LLE venous dopplers reviewed Assessment and Plan - Patient Problems (1) Left leg cellulitis Current Visit: Yes Status: Acute Plan to address problem: 1) Broad spectrum IV antibiotics 2) Elevate left leg and foot as much as possible. 3) No indication for surgical intervention at this time
[2021-02-25] MEDS: VANCOMYCIN 1,250 MG in SODIUM CHLORIDE 0.9% 250ML 250 ML IV SCH (17:09)
[2021-02-25] MEDS: ONDANSETRON 4 MG/2 ML INJ IV PRN (22:15)
[2021-02-26] MEDS: AMPICILLIN/SULBACTA 3GM/100ML 3 GM/100 ML BAG IV SCH ×4 (05:15→23:50)
[2021-02-26] MEDS: VANCOMYCIN 1,250 MG in SODIUM CHLORIDE 0.9% 250ML 250 ML IV SCH ×2 (05:15→19:36)
[2021-02-26] MEDS: SODIUM CHLORIDE 0.9% 1000 ML 1,000 ML IV SCH ×2 (05:17→20:59)
[2021-02-26] MEDS: HEPARIN 5,000 UNIT/1 ML VIAL SUB-Q SCH ×2 (09:32→21:00)
[2021-02-26] MEDS: ONDANSETRON 4 MG/2 ML INJ IV PRN (15:12)
--- NOTE | 2021-02-26 16:07 | Progress Note ---
Assessment and Plan -- Sepsis Secondary infection left lower extremities with cellulitis/abscess Aggressive antibiotic therapy No signs of necrotizing fasciitis -- Left leg cellulitis Patient initiated on IV vancomycin and IV Unasyn Surgery consult requested -- DVT prophylaxis Continue anticoagulation and GI prophylaxis Daily clinical course: 02/25/21: cont empiric abx, follow cx, follow surgery recommendation 02/26/21: swelling slightly improved, but still c/o pain, blood cx neg. no surgical intervention needed. cont empiric abx. if clinically improves possible d/c in the am Subjective Date of service: 02/26/21 Interval history: Patient seen and examined. Medical records and medication list reviewed. No acute event overnight noted by the RN. Patient denies any chest pain or difficulty breathing. Patient is tolerating diet. Continue to complains of left leg swelling and pain, states unable to put wt. on his left foot Discussed plan of care at bedside with patient. Objective - Exam Narrative Exam: GENERAL: well-developed and well-nourished AAM lying on bed appeared to be in no discomfort. HEENT: Normocephalic. Atraumatic. No conjunctival congestion or icterus. Patient has moist mucous membranes. NECK: Supple. Trachea midline. CHEST/LUNGS: Clear to auscultated bilaterally, breathing nonlabored. No wheezes crackles or rhonchi. HEART/CARDIOVASCULAR: Regular in rate and rhythm. S1 and S2 positive. ABDOMEN: Abdomen is soft, nontender. Patient has normal bowel sounds. SKIN: There is no rash. Warm and dry. NEURO: No focal motor deficit. Follows command. MUSCULOSKELETAL: No joint effusion or tenderness. PSYCH: Cooperative. EXTRIMITY: Left lower extremity swollen from below the knee posteriorly up to the ankle Achilles tendon warm to touch red. Small amount of drainage address small puncture wound on the proximal part of the left calf. - Constitutional Vitals: Vital Signs - 12hr 02/26/21 02/26/21 05:36 12:34 Temperature 99.3 F 99.0 F Pulse Rate 86 88 Respiratory 18 18 Rate Blood Pressure 120/77 118/70 O2 Sat by Pulse 99 100 Oximetry - Labs CBC & Chem 7: 02/25/21 04:40 02/25/21 04:00
--- NOTE | 2021-02-26 16:19 | Progress Note ---
Assessment and Plan - Patient Problems (1) Left leg cellulitis Current Visit: Yes Status: Acute Plan to address problem: 1) Continue antibiotics and elevation 2) Check CBC Subjective Date of service: 02/26/21 Patient Reports: Positive: no new complaints, feels better, pain is less Objective Vital Signs - 12hr 02/26/21 02/26/21 05:36 12:34 Temperature 99.3 F 99.0 F Pulse Rate 86 88 Respiratory 18 18 Rate Blood Pressure 120/77 118/70 O2 Sat by Pulse 99 100 Oximetry - Musculoskeletal other (Left leg is less tender and edematous.) - Labs 02/25/21 04:40 02/25/21 04:00
[2021-02-26] MEDS: HYDROmorphone 1 MG/1 ML INJ IV PRN (19:39)
[2021-02-27] MEDS: AMPICILLIN/SULBACTA 3GM/100ML 3 GM/100 ML BAG IV SCH ×3 (05:04→17:20)
[2021-02-27 05:07] LABS: Basophils % (Auto) 0.1 % (0.0-1.8); Eosinophils % (Auto) 0.1 % (0.0-4.3); Hematocrit 35.6 % (35.5-45.6); Hemoglobin 12.2 gm/dl (11.8-15.2); Lymphocytes # (Auto) 1.7 K/mm3 (1.2-5.4); Lymphocytes % (Auto) 10.7 % (13.4-35.0); Mean Corpuscular HGB Conc 34 % (32-34); Mean Corpuscular Volume 94 fl (84-94); Monocytes # (Auto) 1.8 K/mm3 (0.0-0.8); Monocytes % (Auto) 11.3 % (0.0-7.3); Platelet Count 200 K/mm3 (140-440); Red Blood Count 3.81 M/mm3 (3.65-5.03)
[2021-02-27 05:07] LABS: Blood Urea Nitrogen 6 mg/dL (9-20); Calcium 8.7 mg/dL (8.4-10.2); Hemolysis Index 3
[2021-02-27 05:08] LABS: BUN/Creatinine Ratio 9
[2021-02-27] MEDS: VANCOMYCIN 1,250 MG in SODIUM CHLORIDE 0.9% 250ML 250 ML IV SCH (05:46)
[2021-02-27] MEDS: HEPARIN 5,000 UNIT/1 ML VIAL SUB-Q SCH ×2 (09:18→21:48)
[2021-02-27] MEDS: HYDROmorphone 1 MG/1 ML INJ IV PRN (09:29)
[2021-02-27] MEDS: oxyCODONE /ACETAMINOPHEN 5-325MG TAB PO PRN ×2 (11:55→18:29)
--- NOTE | 2021-02-27 12:38 | Progress Note ---
Assessment and Plan Cultures: Blood culture no growth so far A/P: 30 yo M PMHx asthma presented to the hospital with LLE cellulitis #Acute sepsis: with fevers and leukocytosis. Secondary to LLE cellulitis #LLE cellulitis: significant erythema and swelling. Drainage present but CT without abscess. Recs: -Continue vancomycin and Unasyn for now -If swelling/fevers/white count worsen would repeat CT with contrast to re- evaluate for abscess -Likely DC with Bactrim DS q12h and Keflex 500mg q6h to complete 10 days when improved -follow white count. Thank you for the consult, we will continue to follow. Cherise Fonseca MD [facility] O: [phone] F: [phone] Subjective Date of service: 02/27/21 Interval history: 30-year-old man no past medical history presented to hospital complaining of left lower extremity cellulitis. This is associated with significant pain and there is a wound with drainage. Complains of associated swelling and erythema. Reports it initially began as a diaz on the back of his leg which he popped 2x. He works as a local company flatbed truck driver. Febrile on admission to 102.3 with a white count of 16 which is improving. Bl ood cultures no growth so far. Currently on Vanco and Unasyn Imaging personally reviewed: Lower extremity CT: No evident abscess seen. Review of Systems: Bold if positive, otherwise negative General: fevers, chills, rigors HEENT: visual disturbance, diplopia, eye pain Respiratory: cough, sputum, hemoptysis, shortness of breath Cardiovascular: chest pain, syncope Gastrointestinal: nausea, vomiting, diarrhea, abdominal pain Genitourinary: dysuria, hematuria, flank pain Musculoskeletal: neck pain, back pain, joint pain, edema Neurologic: headaches, seizures Hematologic: easy bruising or bleeding Endocrine: night sweats, acute weight loss Skin: rash, jaundice, redness Psychiatric: suicidal, homicidal ideation Objective - Exam Narrative Exam: Physical Exam: Constitutional: Alert, cooperative. No acute distress Head, Ears, Nose: Normocephalic, atraumatic. External ears, nose normal Eyes: Conjunctivae/corneas clear. No icterus. No ptosis. Neck: Supple, no meningeal signs Oral: dentition fair, no thrush Cardiovascular: S1, S2 normal. Respiratory: Good air entry, clear to auscultation bilaterally GI: Soft, non-tender; bowel sounds normal. No peritoneal signs. Musculoskeletal: Left lower leg redness, swelling. Evidence of possibly drained posterior abscess Skin: No rash or abscess Hem/Lymphatic: No palpable cervical or supraclavicular nodes. No lymphangitis Psych: Mood ok. Affect normal Neurological: Awake, alert, oriented. No gross abnormality - Constitutional Vitals: Vital Signs Temp Pulse Resp BP Pulse Ox 99.3 F 65 18 111/70 99 02/27/21 04:39 02/27/21 11:45 02/27/21 04:39 02/27/21 04:39 02/27/21 11:45 Temperature -Last 24 Hours Temperature 99.3 F Temperature 98.7 F Temperature 99.0 F - Labs CBC & Chem 7: 02/26/21 16:17 02/27/21 05:00 Labs: Abnormal lab results 02/26/21 02/27/21 Range/Units 16:17 05:00 WBC 16.0 H (4.5-11.0) K/mm3 RDW 13.0 L (13.2-15.2) % Lymph % (Auto) 10.7 L (13.4-35.0) % [place] % (Auto) 11.3 H (0.0-7.3) % [place] # (Auto) 1.8 H (0.0-0.8) K/mm3 Seg Neutrophils % 77.8 H (40.0-70.0) % Seg Neutrophils # 12.5 H (1.8-7.7) K/mm3 Potassium 3.5 L (3.6-5.0) mmol/L BUN 6 L (9-20) mg/dL Creatinine 0.7 L (0.8-1.3) mg/dL
[2021-02-27] MEDS: SODIUM CHLORIDE 0.9% 1000 ML 1,000 ML IV SCH (16:34)
--- NOTE | 2021-02-27 17:32 | Progress Note ---
Assessment and Plan - Patient Problems (1) Left leg cellulitis Current Visit: Yes Status: Acute Plan to address problem: 1) Continue elevation and antibiotics. Subjective Date of service: 02/27/21 Patient Reports: Positive: no new complaints, feels better, pain is less Objective Vital Signs - 12hr 02/27/21 02/27/21 11:00 11:45 Pulse Rate 65 Respiratory 18 Rate O2 Sat by Pulse 100 99 Oximetry - Musculoskeletal other (Left leg is slightly less tender. Less indurated. Good ROM.) - Labs 02/26/21 16:17 02/27/21 05:00 Diabetes panel 02/27/21 Range/Units 05:00 Sodium 139 (137-145) mmol/L Potassium 3.5 L (3.6-5.0) mmol/L Chloride 103.4 (98-107) mmol/L Carbon Dioxide 24 (22-30) mmol/L BUN 6 L (9-20) mg/dL Creatinine 0.7 L (0.8-1.3) mg/dL Glucose 94 (75-100) mg/dL Calcium 8.7 (8.4-10.2) mg/dL Calcium panel 02/27/21 Range/Units 05:00 Calcium 8.7 (8.4-10.2) mg/dL Pituitary panel 02/27/21 Range/Units 05:00 Sodium 139 (137-145) mmol/L Potassium 3.5 L (3.6-5.0) mmol/L Chloride 103.4 (98-107) mmol/L Carbon Dioxide 24 (22-30) mmol/L BUN 6 L (9-20) mg/dL Creatinine 0.7 L (0.8-1.3) mg/dL Glucose 94 (75-100) mg/dL Calcium 8.7 (8.4-10.2) mg/dL Adrenal panel 02/27/21 Range/Units 05:00 Sodium 139 (137-145) mmol/L Potassium 3.5 L (3.6-5.0) mmol/L Chloride 103.4 (98-107) mmol/L Carbon Dioxide 24 (22-30) mmol/L BUN 6 L (9-20) mg/dL Creatinine 0.7 L (0.8-1.3) mg/dL Glucose 94 (75-100) mg/dL Calcium 8.7 (8.4-10.2) mg/dL
--- NOTE | 2021-02-27 18:06 | Progress Note ---
Assessment and Plan Assessment and plan: 30-year-old -Uk[place] male with no significant past medical history except for asthma comes in for left lower extremity swelling below the knee associated with redness and severe pain pain is about 10 on a scale of 1-10 there is a small puncture wound with drainage. Erythema present on the upper calf to the Achilles tendon. Tight and swollen. Has fever and chills. -- Sepsis Secondary infection left lower extremities with cellulitis/abscess Aggressive antibiotic therapy No signs of necrotizing fasciitis, CT scan negative for abscess -- Left leg cellulitis Patient initiated on IV vancomycin and IV Unasyn Surgery and ID consulted and following -- DVT prophylaxis Continue anticoagulation and GI prophylaxis Daily clinical course: 02/25/21: cont empiric abx, follow cx, follow surgery recommendation 02/26/21: swelling slightly improved, but still c/o pain, blood cx neg. no surgical intervention needed. cont empiric abx. 02/27/2021: Patient will have significant left calf swelling, induration, erythema and pain. However, fever/chills resolved and the WBC improving, from a 19-16. Blood cultures negative. Still concerning for abscess, may need to re peat CT scan with IV contrast per ID recommendations. General surgery following. History Interval history: Patient will have significant left calf swelling, induration, erythema and pain. However, fever resolved in the WBC improving. Hospitalist Physical - Constitutional Vitals: Temp Pulse Resp BP Pulse Ox 99.3 F 65 18 111/70 99 02/27/21 04:39 02/27/21 11:45 02/27/21 11:00 02/27/21 04:39 02/27/21 11:45 General appearance: Present: no acute distress, well-nourished - EENT Eyes: Present: PERRL, EOM intact ENT: clear oral mucosa - Neck Neck: Present: supple - Respiratory Respiratory effort: normal Respiratory: bilateral: CTA - Cardiovascular Rhythm: regular - Extremities Extremity abnormal: other (Left calf significantly swollen, indurated, red, warm and tender, a tiny scab in the calf, no fluctuation appreciated.) - Abdominal General gastrointestinal: soft, non-tender, non-distended, normal bowel sounds - Integumentary Integumentary: Absent: rash - Psychiatric Psychiatric: appropriate mood/affect - Neurologic Neurologic: no focal deficits Results - Labs CBC & Chem 7: 02/26/21 16:17 02/27/21 05:00 Labs: Laboratory Last Values WBC 16.0 K/mm3 (4.5-11.0) H 02/26/21 16:17 RBC 3.81 M/mm3 (3.65-5.03) 02/26/21 16:17 Hgb 12.2 gm/dl (11.8-15.2) 02/26/21 16:17 Hct 35.6 % (35.5-45.6) 02/26/21 16:17 MCV 94 fl (84-94) 02/26/21 16:17 MCH 32 pg (28-32) 02/26/21 16:17 MCHC 34 % (32-34) 02/26/21 16:17 RDW 13.0 % (13.2-15.2) L 02/26/21 16:17 Plt Count 200 K/mm3 (140-440) 02/26/21 16:17 Lymph % (Auto) 10.7 % (13.4-35.0) L 02/26/21 16:17 [place] % (Auto) 11.3 % (0.0-7.3) H 02/26/21 16:17 Eos % (Auto) 0.1 % (0.0-4.3) 02/26/21 16:17 Baso % (Auto) 0.1 % (0.0-1.8) 02/26/21 16:17 Lymph # (Auto) 1.7 K/mm3 (1.2-5.4) 02/26/21 16:17 [place] # (Auto) 1.8 K/mm3 (0.0-0.8) H 02/26/21 16:17 Eos # (Auto) 0.0 K/mm3 (0.0-0.4) 02/26/21 16:17 Baso # (Auto) 0.0 K/mm3 (0.0-0.1) 02/26/21 16:17 Add Manual Diff Complete 02/25/21 04:40 Total Counted 100 02/25/21 04:40 Seg Neutrophils % 77.8 % (40.0-70.0) H 02/26/21 16:17 Seg Neuts % (Manual) 75.0 % (40.0-70.0) H 02/25/21 04:40 Band Neutrophils % 2.0 % 02/25/21 04:40 Lymphocytes % (Manual) 6.0 % (13.4-35.0) L 02/25/21 04:40 Monocytes % (Manual) 17.0 % (0.0-7.3) H 02/25/21 04:40 Nucleated RBC % Not Reportable 02/25/21 04:40 Seg Neutrophils # 12.5 K/mm3 (1.8-7.7) H 02/26/21 16:17 Seg Neutrophils # Man 15.2 K/mm3 (1.8-7.7) H 02/25/21 04:40 Band Neutrophils # 0.4 K/mm3 02/25/21 04:40 Lymphocytes # (Manual) 1.2 K/mm3 (1.2-5.4) 02/25/21 04:40 Abs React Lymphs (Man) 0.0 K/mm3 02/25/21 04:40 Monocytes # (Manual) 3.5 K/mm3 (0.0-0.8) H 02/25/21 04:40 Eosinophils # (Manual) 0.0 K/mm3 (0.0-0.4) 02/25/21 04:40 Basophils # (Manual) 0.0 K/mm3 (0.0-0.1) 02/25/21 04:40 Metamyelocytes # 0.0 K/mm3 02/25/21 04:40 Myelocytes # 0.0 K/mm3 02/25/21 04:40 Promyelocytes # 0.0 K/mm3 02/25/21 04:40 Blast Cells # 0.0 K/mm3 02/25/21 04:40 WBC Morphology Not Reportable 02/25/21 04:40 Hypersegmented Neuts Not Reportable 02/25/21 04:40 Hyposegmented Neuts Not Reportable 02/25/21 04:40 Hypogranular Neuts Not Reportable 02/25/21 04:40 Smudge Cells Not Reportable 02/25/21 04:40 Toxic Granulation Not Reportable 02/25/21 04:40 Toxic Vacuolation Not Reportable 02/25/21 04:40 Dohle Bodies Not Reportable 02/25/21 04:40 Pelger-Huet Anomaly Not Reportable 02/25/21 04:40 Scooter Rods Not Reportable 02/25/21 04:40 Platelet Estimate Consistent w auto 02/25/21 04:40 Clumped Platelets Not Reportable 02/25/21 04:40 Plt Clumps, EDTA Not Reportable 02/25/21 04:40 Large Platelets Not Reportable 02/25/21 04:40 Giant Platelets Not Reportable 02/25/21 04:40 Platelet Satelliting Not Reportable 02/25/21 04:40 Plt Morphology Comment Not Reportable 02/25/21 04:40 RBC Morphology Normal 02/25/21 04:40 Dimorphic RBCs Not Reportable 02/25/21 04:40 Polychromasia Not Reportable 02/25/21 04:40 Hypochromasia Not Reportable 02/25/21 04:40 Poikilocytosis Not Reportable 02/25/21 04:40 Anisocytosis Not Reportable 02/25/21 04:40 Microcytosis Not Reportable 02/25/21 04:40 Macrocytosis Not Reportable 02/25/21 04:40 Spherocytes Not Reportable 02/25/21 04:40 Pappenheimer Bodies Not Reportable 02/25/21 04:40 Sickle Cells Not Reportable 02/25/21 04:40 Target Cells Not Reportable 02/25/21 04:40 Tear Drop Cells Not Reportable 02/25/21 04:40 Ovalocytes Not Reportable 02/25/21 04:40 Helmet Cells Not Reportable 02/25/21 04:40 [place] Bodies Not Reportable 02/25/21 04:40 [place] Rings Not Reportable 02/25/21 04:40 [place] Cells Not Reportable 02/25/21 04:40 Bite Cells Not Reportable 02/25/21 04:40 Crenated Cell Not Reportable 02/25/21 04:40 Elliptocytes Not Reportable 02/25/21 04:40 Acanthocytes (Spur) Not Reportable 02/25/21 04:40 Rouleaux Not Reportable 02/25/21 04:40 Hemoglobin C Crystals Not Reportable 02/25/21 04:40 Schistocytes Not Reportable 02/25/21 04:40 Malaria parasites Not Reportable 02/25/21 04:40 David Bodies Not Reportable 02/25/21 04:40 Hem Pathologist Commnt No 02/25/21 04:40 Sodium 139 mmol/L (137-145) 02/27/21 05:00 Potassium 3.5 mmol/L (3.6-5.0) L 02/27/21 05:00 Chloride 103.4 mmol/L (98-107) 02/27/21 05:00 Carbon Dioxide 24 mmol/L (22-30) 02/27/21 05:00 Anion Gap 15 mmol/L 02/27/21 05:00 BUN 6 mg/dL (9-20) L 02/27/21 05:00 Creatinine 0.7 mg/dL (0.8-1.3) L 02/27/21 05:00 Estimated GFR > 60 ml/min 02/27/21 05:00 BUN/Creatinine Ratio 9 % 02/27/21 05:00 Glucose 94 mg/dL (75-100) 02/27/21 05:00 Hemoglobin A1c 5.1 % (4-6) 02/25/21 04:45 Lactic Acid 1.80 mmol/L (0.7-2.0) 02/24/21 17:22 Calcium 8.7 mg/dL (8.4-10.2) 02/27/21 05:00 Magnesium 1.70 mg/dL (1.7-2.3) 02/24/21 17:11 Total Bilirubin 1.30 mg/dL (0.1-1.2) H 02/25/21 04:00 AST 13 units/L (5-40) 02/25/21 04:00 ALT 9 units/L (7-56) 02/25/21 04:00 Alkaline Phosphatase 96 units/L (35-129) 02/25/21 04:00 Total Creatine Kinase 161 units/L (55-170) 02/24/21 17:11 Total Protein 6.7 g/dL (6.3-8.2) 02/25/21 04:00 Albumin 3.7 g/dL (3.9-5) L 02/25/21 04:00 Albumin/Globulin Ratio 1.6 % 02/25/21 04:00 Vancomycin Trough 8.7 ug/mL (5.0-20.0) 02/27/21 05:00 Microbiology: Microbiology 02/24/21 17:11 Peripheral/Venous Blood Culture - Preliminary NO GROWTH AFTER 48 HOURS 02/24/21 17:11 Peripheral/Venous Blood Culture - Preliminary NO GROWTH AFTER 48 HOURS [place]/IV: Voiding Method Urinal Active Medications - Current Medications Current Medications: Generic Name Dose Route Start Last Admin Trade Name Freq PRN Reason Stop Dose Admin Acetaminophen 650 mg 02/24/21 20:31 02/25/21 16:53 Acetaminophen 325 Mg Tab PO 650 mg Q4H PRN Administration Pain MILD(1-3)/Fever >100.5/RUBI Heparin Sodium (Porcine) 5,000 unit 02/24/21 22:00 02/27/21 09:18 Heparin 5,000 Unit/1 Ml Vial SUB-Q 5,000 unit Q12HR ZAN Administration Hydromorphone HCl 0.5 mg 02/24/21 20:31 02/27/21 09:29 Hydromorphone 1 Mg/1 Ml Inj IV 0.5 mg Q3H PRN Administration Pain , Severe (7-10) Sodium Chloride 1,000 mls @ 75 mls/hr 02/24/21 20:45 02/27/21 16:34 Nacl 0.9% 1000 Ml IV 75 mls/hr DIRECT ZAN Administration Ampicillin Sodium/Sulbactam Sodium 3 gm in 100 mls @ 100 mls/hr 02/25/21 00:00 02/27/21 17:20 Unasyn/Ns 3 Gm/100 Ml IV 100 mls/hr Q6HR ZAN Administration Protocol Vancomycin HCl 1,500 mg/ 530 mls @ 333.333 mls/hr 02/27/21 18:00 Sodium Chloride IV Q12H ZAN Metoclopramide HCl 10 mg 02/24/21 20:31 Metoclopramide 10 Mg/2 Ml Inj IV Q6H PRN Nausea And Vomiting Ondansetron HCl 4 mg 02/24/21 20:31 02/26/21 15:12 Ondansetron 4 Mg/2 Ml Inj IV 4 mg Q8H PRN Administration Nausea And Vomiting Oxycodone/Acetaminophen 1 tab 02/24/21 20:31 02/27/21 11:55 Oxycodone /Acetaminophen 5-325mg Tab PO 1 tab Q6H PRN Administration Pain, Moderate (4-6) Sodium Chloride 10 ml 02/24/21 22:00 02/27/21 09:19 Sodium Chloride 0.9% 10 Ml Flush Syringe IV 10 ml BID ZAN Administration Sodium Chloride 10 ml 02/24/21 20:31 Sodium Chloride 0.9% 10 Ml Flush Syringe IV PRN PRN LINE FLUSH
[2021-02-27] MEDS: VANCOMYCIN 1,500 MG in SODIUM CHLORIDE 0.9% 500 ML 500 ML IV SCH (18:30)
[2021-02-28] MEDS: AMPICILLIN/SULBACTA 3GM/100ML 3 GM/100 ML BAG IV SCH ×4 (00:37→20:31)
[2021-02-28] MEDS: VANCOMYCIN 1,500 MG in SODIUM CHLORIDE 0.9% 500 ML 500 ML IV SCH ×2 (05:24→19:14)
[2021-02-28] MEDS: HEPARIN 5,000 UNIT/1 ML VIAL SUB-Q SCH ×3 (09:06→23:23)
[2021-02-28] MEDS: HYDROmorphone 1 MG/1 ML INJ IV PRN ×2 (09:06→12:38)
[2021-02-28 11:21] LABS: Basophils % (Auto) 0.2 % (0.0-1.8); Eosinophils % (Auto) 0.3 % (0.0-4.3); Hematocrit 35.3 % (35.5-45.6); Hemoglobin 12.1 gm/dl (11.8-15.2); Lymphocytes # (Auto) 1.8 K/mm3 (1.2-5.4); Lymphocytes % (Auto) 16.8 % (13.4-35.0); Mean Corpuscular HGB Conc 34 % (32-34); Mean Corpuscular Volume 92 fl (84-94); Monocytes # (Auto) 1.2 K/mm3 (0.0-0.8); Monocytes % (Auto) 10.7 % (0.0-7.3); Platelet Count 225 K/mm3 (140-440); Red Blood Count 3.82 M/mm3 (3.65-5.03); Red Cell Distribution Width 12.9 % (13.2-15.2)
--- NOTE | 2021-02-28 11:25 | Progress Note ---
Assessment and Plan - Patient Problems (1) Left leg cellulitis Current Visit: Yes Status: Acute Plan to address problem: 1) Can be discharged from my perspective. 2) Nothing to add. Will therefore sign off. Subjective Date of service: 02/28/21 Patient Reports: Positive: no new complaints, feels better, still having pain, pain is less. Negative: fever Objective Vital Signs - 12hr 02/28/21 04:12 Temperature 98.4 F Pulse Rate 64 Respiratory 18 Rate Blood Pressure 126/81 O2 Sat by Pulse 100 Oximetry - Musculoskeletal other (Left leg induration and tenderness continue to improve.) - Labs 02/28/21 10:42 02/27/21 05:00
[2021-02-28 13:02] LABS: Alanine Aminotransferase 9 units/L (7-56); Albumin 3.5 g/dL (3.9-5); BUN/Creatinine Ratio 7; Blood Urea Nitrogen 5 mg/dL (9-20); Calcium 8.7 mg/dL (8.4-10.2); Hemolysis Index 3
--- NOTE | 2021-02-28 14:11 | Progress Note ---
Assessment and Plan Cultures: Blood culture no growth so far A/P: 30 yo M PMHx asthma presented to the hospital with LLE cellulitis #Acute sepsis: with fevers and leukocytosis. Secondary to LLE cellulitis. Resolved #LLE cellulitis: significant erythema and swelling. Drainage present but CT without abscess. Recs: -Continue vancomycin and Unasyn for now -He is improved, okay for DC from infectious disease perspective -Likely DC with Bactrim DS q12h and Keflex 500mg q6h to complete 10 days total when improved. Bactrim is free at [facility] if necessary Thank you for the consult, we will continue to follow. Cherise Fonseca MD [facility] ([facility]) O: [phone] F: [phone] Subjective Date of service: 02/28/21 Interval history: Afebrile now, normal white count. Objective - Exam Narrative Exam: Physical Exam: Constitutional: Alert, cooperative. No acute distress Head, Ears, Nose: Normocephalic, atraumatic. External ears, nose normal Eyes: Conjunctivae/corneas clear. No icterus. No ptosis. Neck: Supple, no meningeal signs Oral: dentition fair, no thrush Cardiovascular: S1, S2 normal. Respiratory: Good air entry, clear to auscultation bilaterally GI: Soft, non-tender; bowel sounds normal. No peritoneal signs. Musculoskeletal: Left lower leg redness, swelling. Evidence of possibly drained posterior abscess Skin: No rash or abscess Hem/Lymphatic: No palpable cervical or supraclavicular nodes. No lymphangitis Psych: Mood ok. Affect normal Neurological: Awake, alert, oriented. No gross abnormality - Constitutional Vitals: Vital Signs Temp Pulse Resp BP Pulse Ox 98.4 F 64 18 126/81 100 02/28/21 04:12 02/28/21 04:12 02/28/21 04:12 02/28/21 04:12 02/28/21 04:12 Temperature -Last 24 Hours Temperature 98.4 F Temperature 98.8 F Temperature 99.3 F - Labs CBC & Chem 7: 02/28/21 10:42 02/28/21 10:42 Labs: Abnormal lab results 02/28/21 02/28/21 Range/Units 10:42 10:42 Hct 35.3 L (35.5-45.6) % RDW 12.9 L (13.2-15.2) % [place] % (Auto) 10.7 H (0.0-7.3) % [place] # (Auto) 1.2 H (0.0-0.8) K/mm3 Seg Neutrophils % 72.0 H (40.0-70.0) % Seg Neutrophils # 7.8 H (1.8-7.7) K/mm3 BUN 5 L (9-20) mg/dL Creatinine 0.7 L (0.8-1.3) mg/dL Total Protein 5.6 L (6.3-8.2) g/dL Albumin 3.5 L (3.9-5) g/dL
[2021-02-28] MEDS: SODIUM CHLORIDE 0.9% 1000 ML 1,000 ML IV SCH (14:38)
--- NOTE | 2021-02-28 16:04 | Progress Note ---
Assessment and Plan Assessment and plan: 30-year-old -Iranian male with no significant past medical history except for asthma comes in for left lower extremity swelling below the knee associated with redness and severe pain pain is about 10 on a scale of 1-10 there is a small puncture wound with drainage. Erythema present on the upper calf to the Achilles tendon. Tight and swollen. Has fever and chills. -- Sepsis Secondary infection left lower extremities with cellulitis/abscess Aggressive antibiotic therapy -- Left leg cellulitis Patient initiated on IV vancomycin and IV Unasyn No signs of necrotizing fasciitis, CT scan negative for abscess Surgery and ID consulted and following -- DVT prophylaxis Continue anticoagulation and GI prophylaxis Daily clinical course: 02/25/21: cont empiric abx, follow cx, follow surgery recommendation 02/26/21: swelling slightly improved, but still c/o pain, blood cx neg. no surgical intervention needed. cont empiric abx. 02/27/2021: Patient will have significant left calf swelling, induration, erythema and pain. However, fever/chills resolved and the WBC improving, from a 19-16. Blood cultures negative. Still concerning for abscess, may need to r epeat CT scan with IV contrast per ID recommendations. General surgery following. 02/28/2021: Left calf swelling and redness improving, softer today, fever resolved, WBC resolving, blood cultures negative. Continue current antibiotic therapy. History Interval history: Calf swelling and induration is improving, it is softer. Leukocytosis progressive improved. Fever resolved. It hurts mostly when he walks.. Hospitalist Physical - Constitutional Vitals: Temp Pulse Resp BP Pulse Ox 98.6 F 80 18 123/89 95 02/28/21 11:39 02/28/21 11:39 02/28/21 11:39 02/28/21 11:39 02/28/21 11:39 General appearance: Present: no acute distress, well-nourished - EENT Eyes: Present: PERRL, EOM intact ENT: dentition normal - Neck Neck: Present: supple - Respiratory Respiratory effort: normal Respiratory: bilateral: CTA - Cardiovascular Rhythm: regular - Extremities Extremity abnormal: other (Left cough swelling is softer and the redness is improving.) - Abdominal General gastrointestinal: soft, non-tender - Integumentary Integumentary: Absent: rash - Psychiatric Psychiatric: appropriate mood/affect - Neurologic Neurologic: no focal deficits Results - Labs CBC & Chem 7: 02/28/21 10:42 02/28/21 10:42 Labs: Laboratory Last Values WBC 10.8 K/mm3 (4.5-11.0) 02/28/21 10:42 RBC 3.82 M/mm3 (3.65-5.03) 02/28/21 10:42 Hgb 12.1 gm/dl (11.8-15.2) 02/28/21 10:42 Hct 35.3 % (35.5-45.6) L 02/28/21 10:42 MCV 92 fl (84-94) 02/28/21 10:42 MCH 32 pg (28-32) 02/28/21 10:42 MCHC 34 % (32-34) 02/28/21 10:42 RDW 12.9 % (13.2-15.2) L 02/28/21 10:42 Plt Count 225 K/mm3 (140-440) 02/28/21 10:42 Lymph % (Auto) 16.8 % (13.4-35.0) 02/28/21 10:42 [place] % (Auto) 10.7 % (0.0-7.3) H 02/28/21 10:42 Eos % (Auto) 0.3 % (0.0-4.3) 02/28/21 10:42 Baso % (Auto) 0.2 % (0.0-1.8) 02/28/21 10:42 Lymph # (Auto) 1.8 K/mm3 (1.2-5.4) 02/28/21 10:42 [place] # (Auto) 1.2 K/mm3 (0.0-0.8) H 02/28/21 10:42 Eos # (Auto) 0.0 K/mm3 (0.0-0.4) 02/28/21 10:42 Baso # (Auto) 0.0 K/mm3 (0.0-0.1) 02/28/21 10:42 Add Manual Diff Complete 02/25/21 04:40 Total Counted 100 02/25/21 04:40 Seg Neutrophils % 72.0 % (40.0-70.0) H 02/28/21 10:42 Seg Neuts % (Manual) 75.0 % (40.0-70.0) H 02/25/21 04:40 Band Neutrophils % 2.0 % 02/25/21 04:40 Lymphocytes % (Manual) 6.0 % (13.4-35.0) L 02/25/21 04:40 Monocytes % (Manual) 17.0 % (0.0-7.3) H 02/25/21 04:40 Nucleated RBC % Not Reportable 02/25/21 04:40 Seg Neutrophils # 7.8 K/mm3 (1.8-7.7) H 02/28/21 10:42 Seg Neutrophils # Man 15.2 K/mm3 (1.8-7.7) H 02/25/21 04:40 Band Neutrophils # 0.4 K/mm3 02/25/21 04:40 Lymphocytes # (Manual) 1.2 K/mm3 (1.2-5.4) 02/25/21 04:40 Abs React Lymphs (Man) 0.0 K/mm3 02/25/21 04:40 Monocytes # (Manual) 3.5 K/mm3 (0.0-0.8) H 02/25/21 04:40 Eosinophils # (Manual) 0.0 K/mm3 (0.0-0.4) 02/25/21 04:40 Basophils # (Manual) 0.0 K/mm3 (0.0-0.1) 02/25/21 04:40 Metamyelocytes # 0.0 K/mm3 02/25/21 04:40 Myelocytes # 0.0 K/mm3 02/25/21 04:40 Promyelocytes # 0.0 K/mm3 02/25/21 04:40 Blast Cells # 0.0 K/mm3 02/25/21 04:40 WBC Morphology Not Reportable 02/25/21 04:40 Hypersegmented Neuts Not Reportable 02/25/21 04:40 Hyposegmented Neuts Not Reportable 02/25/21 04:40 Hypogranular Neuts Not Reportable 02/25/21 04:40 Smudge Cells Not Reportable 02/25/21 04:40 Toxic Granulation Not Reportable 02/25/21 04:40 Toxic Vacuolation Not Reportable 02/25/21 04:40 Dohle Bodies Not Reportable 02/25/21 04:40 Pelger-Huet Anomaly Not Reportable 02/25/21 04:40 Scooter Rods Not Reportable 02/25/21 04:40 Platelet Estimate Consistent w auto 02/25/21 04:40 Clumped Platelets Not Reportable 02/25/21 04:40 Plt Clumps, EDTA Not Reportable 02/25/21 04:40 Large Platelets Not Reportable 02/25/21 04:40 Giant Platelets Not Reportable 02/25/21 04:40 Platelet Satelliting Not Reportable 02/25/21 04:40 Plt Morphology Comment Not Reportable 02/25/21 04:40 RBC Morphology Normal 02/25/21 04:40 Dimorphic RBCs Not Reportable 02/25/21 04:40 Polychromasia Not Reportable 02/25/21 04:40 Hypochromasia Not Reportable 02/25/21 04:40 Poikilocytosis Not Reportable 02/25/21 04:40 Anisocytosis Not Reportable 02/25/21 04:40 Microcytosis Not Reportable 02/25/21 04:40 Macrocytosis Not Reportable 02/25/21 04:40 Spherocytes Not Reportable 02/25/21 04:40 Pappenheimer Bodies Not Reportable 02/25/21 04:40 Sickle Cells Not Reportable 02/25/21 04:40 Target Cells Not Reportable 02/25/21 04:40 Tear Drop Cells Not Reportable 02/25/21 04:40 Ovalocytes Not Reportable 02/25/21 04:40 Helmet Cells Not Reportable 02/25/21 04:40 [place] Bodies Not Reportable 02/25/21 04:40 [place] Rings Not Reportable 02/25/21 04:40 [place] Cells Not Reportable 02/25/21 04:40 Bite Cells Not Reportable 02/25/21 04:40 Crenated Cell Not Reportable 02/25/21 04:40 Elliptocytes Not Reportable 02/25/21 04:40 Acanthocytes (Spur) Not Reportable 02/25/21 04:40 Rouleaux Not Reportable 02/25/21 04:40 Hemoglobin C Crystals Not Reportable 02/25/21 04:40 Schistocytes Not Reportable 02/25/21 04:40 Malaria parasites Not Reportable 02/25/21 04:40 David Bodies Not Reportable 02/25/21 04:40 Hem Pathologist Commnt No 02/25/21 04:40 Sodium 142 mmol/L (137-145) 02/28/21 10:42 Potassium 3.7 mmol/L (3.6-5.0) 02/28/21 10:42 Chloride 106.2 mmol/L (98-107) 02/28/21 10:42 Carbon Dioxide 25 mmol/L (22-30) 02/28/21 10:42 Anion Gap 15 mmol/L 02/28/21 10:42 BUN 5 mg/dL (9-20) L 02/28/21 10:42 Creatinine 0.7 mg/dL (0.8-1.3) L 02/28/21 10:42 Estimated GFR > 60 ml/min 02/28/21 10:42 BUN/Creatinine Ratio 7 % 02/28/21 10:42 Glucose 100 mg/dL (75-100) 02/28/21 10:42 Hemoglobin A1c 5.1 % (4-6) 02/25/21 04:45 Lactic Acid 1.80 mmol/L (0.7-2.0) 02/24/21 17:22 Calcium 8.7 mg/dL (8.4-10.2) 02/28/21 10:42 Magnesium 1.70 mg/dL (1.7-2.3) 02/24/21 17:11 Total Bilirubin 0.40 mg/dL (0.1-1.2) 02/28/21 10:42 AST 11 units/L (5-40) 02/28/21 10:42 ALT 9 units/L (7-56) 02/28/21 10:42 Alkaline Phosphatase 69 units/L (35-129) 02/28/21 10:42 Total Creatine Kinase 161 units/L (55-170) 02/24/21 17:11 Total Protein 5.6 g/dL (6.3-8.2) L 02/28/21 10:42 Albumin 3.5 g/dL (3.9-5) L 02/28/21 10:42 Albumin/Globulin Ratio 1.7 % 02/28/21 10:42 Vancomycin Trough 8.7 ug/mL (5.0-20.0) 02/27/21 05:00 Microbiology: Microbiology 02/24/21 17:11 Peripheral/Venous Blood Culture - Preliminary NO GROWTH AFTER 72 HOURS 02/24/21 17:11 Peripheral/Venous Blood Culture - Preliminary NO GROWTH AFTER 72 HOURS [place]/IV: Voiding Method Urinal Active Medications - Current Medications Current Medications: Generic Name Dose Route Start Last Admin Trade Name Freq PRN Reason Stop Dose Admin Acetaminophen 650 mg 02/24/21 20:31 02/25/21 16:53 Acetaminophen 325 Mg Tab PO 650 mg Q4H PRN Administration Pain MILD(1-3)/Fever >100.5/RUBI Heparin Sodium (Porcine) 5,000 unit 02/24/21 22:00 02/28/21 09:06 Heparin 5,000 Unit/1 Ml Vial SUB-Q 5,000 unit Q12HR ZAN Administration Hydromorphone HCl 0.5 mg 02/24/21 20:31 02/28/21 12:38 Hydromorphone 1 Mg/1 Ml Inj IV 0.5 mg Q3H PRN Administration Pain , Severe (7-10) Sodium Chloride 1,000 mls @ 75 mls/hr 02/24/21 20:45 02/28/21 14:38 Nacl 0.9% 1000 Ml IV 75 mls/hr DIRECT ZAN Administration Ampicillin Sodium/Sulbactam Sodium 3 gm in 100 mls @ 100 mls/hr 02/25/21 00:00 02/28/21 15:21 Unasyn/Ns 3 Gm/100 Ml IV 100 mls/hr Q6HR ZAN Administration Protocol Vancomycin HCl 1,500 mg/ 530 mls @ 333.333 mls/hr 02/27/21 18:00 02/28/21 05:24 Sodium Chloride IV 333.333 mls/hr Q12H ZAN Administration Metoclopramide HCl 10 mg 02/24/21 20:31 Metoclopramide 10 Mg/2 Ml Inj IV Q6H PRN Nausea And Vomiting Ondansetron HCl 4 mg 02/24/21 20:31 02/26/21 15:12 Ondansetron 4 Mg/2 Ml Inj IV 4 mg Q8H PRN Administration Nausea And Vomiting Oxycodone/Acetaminophen 1 tab 02/24/21 20:31 02/27/21 18:29 Oxycodone /Acetaminophen 5-325mg Tab PO 1 tab Q6H PRN Administration Pain, Moderate (4-6) Sodium Chloride 10 ml 02/24/21 22:00 02/28/21 09:06 Sodium Chloride 0.9% 10 Ml Flush Syringe IV 10 ml BID ZAN Administration Sodium Chloride 10 ml 02/24/21 20:31 Sodium Chloride 0.9% 10 Ml Flush Syringe IV PRN PRN LINE FLUSH
[2021-02-28] MEDS: oxyCODONE /ACETAMINOPHEN 5-325MG TAB PO PRN (20:30)
[2021-03-01] MEDS: AMPICILLIN/SULBACTA 3GM/100ML 3 GM/100 ML BAG IV SCH ×5 (01:16→23:37)
[2021-03-01] MEDS: SODIUM CHLORIDE 0.9% 1000 ML 1,000 ML IV SCH (01:17)
[2021-03-01] MEDS: VANCOMYCIN 1,500 MG in SODIUM CHLORIDE 0.9% 500 ML 500 ML IV SCH ×2 (05:00→17:34)
[2021-03-01] MEDS: oxyCODONE /ACETAMINOPHEN 5-325MG TAB PO PRN ×2 (09:53→23:37)
[2021-03-01] MEDS: HEPARIN 5,000 UNIT/1 ML VIAL SUB-Q SCH ×2 (09:53→22:23)
[2021-03-01] MEDS: HYDROmorphone 1 MG/1 ML INJ IV PRN (13:51)
--- NOTE | 2021-03-01 13:56 | Progress Note ---
Assessment and Plan Cultures: Blood culture no growth so far A/P: 30 yo M PMHx asthma presented to the hospital with LLE cellulitis #Acute sepsis: with fevers and leukocytosis. Secondary to LLE cellulitis. Resolved #LLE cellulitis: significant erythema and swelling. Drainage present but CT without abscess. Recs: -Continue vancomycin and Unasyn for now -He is improved, okay for DC from infectious disease perspective -Likely DC with Bactrim DS q12h and Keflex 500mg q6h to complete 10 days total when improved. Bactrim is free at [facility] if necessary Thank you for the consult, we will continue to follow. Cherise Fonseca MD [facility] ([facility]) O: [phone] F: [phone] Subjective Date of service: 03/01/21 Interval history: Afebrile, no acute change. Reports improvement in the leg. Objective - Exam Narrative Exam: Physical Exam: Constitutional: Alert, cooperative. No acute distress Head, Ears, Nose: Normocephalic, atraumatic. External ears, nose normal Eyes: Conjunctivae/corneas clear. No icterus. No ptosis. Neck: Supple, no meningeal signs Oral: dentition fair, no thrush Cardiovascular: S1, S2 normal. Respiratory: Good air entry, clear to auscultation bilaterally GI: Soft, non-tender; bowel sounds normal. No peritoneal signs. Musculoskeletal: Left lower leg redness, swelling. Evidence of possibly drained posterior abscess Skin: No rash or abscess Hem/Lymphatic: No palpable cervical or supraclavicular nodes. No lymphangitis Psych: Mood ok. Affect normal Neurological: Awake, alert, oriented. No gross abnormality - Constitutional Vitals: Vital Signs Temp Pulse Resp BP Pulse Ox 98.5 F 52 L 18 131/83 100 03/01/21 04:57 03/01/21 04:57 03/01/21 04:57 03/01/21 04:57 03/01/21 04:57 Temperature -Last 24 Hours Temperature 98.5 F Temperature 98.6 F Temperature 100.2 F - Labs CBC & Chem 7: 02/28/21 10:42 02/28/21 10:42
--- NOTE | 2021-03-01 15:47 | Anesthesia Consultation ---
Anesthesia Consult and Med Hx Date of service: 03/02/21 - Airway Anesthetic Teeth Evaluation: Good ROM Head & Neck: Adequate Mental/Hyoid Distance: Adequate Mallampati Class: Class II Intubation Access Assessment: Probably Good - Pulmonary Exam CTA: Yes - Cardiac Exam Cardiac Exam: RRR - Pre-Operative Health Status ASA Pre-Surgery Classification: ASA2 - Pulmonary Hx Asthma: Yes (Has not needed inhaler in "several years.") Hx Respiratory Symptoms: No Hx Pneumonia: No - Cardiovascular System Hx Hypertension: No Hx Heart Attack/AMI: No Hx Cardia Arrhythmia: No - Gastrointestinal Hx Gastroesophageal Reflux Disease: No - Endocrine Hx Renal Disease: No Hx Liver Disease: No Hx Insulin Dependent Diabetes: No Hx Non-Insulin Dependent Diabetes: No - Other Systems Hx Alcohol Use: No Hx Substance Use: No (smokes marijuana everyday) Hx Cancer: No - Additional Comments Anesthesia Medical History Comments: lower bottom left tooth missing. has never had anesthetic. no fhac.
[2021-03-01] MEDS: ACETAMINOPHEN 325 MG TAB PO PRN (17:34)
--- NOTE | 2021-03-01 18:07 | Progress Note ---
Assessment and Plan Assessment and plan: 30-year-old -N[place]ien male with no significant past medical history except for asthma comes in for left lower extremity swelling below the knee associated with redness and severe pain pain is about 10 on a scale of 1-10 there is a small puncture wound with drainage. Erythema present on the upper calf to the Achilles tendon. Tight and swollen. Has fever and chills. -- Sepsis Secondary infection left lower extremities with cellulitis/abscess Aggressive antibiotic therapy -- Left leg cellulitis Patient initiated on IV vancomycin and IV Unasyn No signs of necrotizing fasciitis, CT scan negative for abscess Surgery and ID consulted and following Left calf abscess spontaneously opened on 02/28/2021 and draining bloodstained purulence Scheduled for IND Wound culture sent on 03/01/2021 -- DVT prophylaxis Continue anticoagulation and GI prophylaxis Daily clinical course: 02/25/21: cont empiric abx, follow cx, follow surgery recommendation 02/26/21: swelling slightly improved, but still c/o pain, blood cx neg. no surgical intervention needed. cont empiric abx. 02/27/2021: Patient will have significant left calf swelling, induration, erythema and pain. However, fever/chills resolved and the WBC improving, from a 19-16. Blood cultures negative. Still concerning for abscess, may need to repeat CT scan with IV contrast per ID recommendations. General surgery following. 02/28/2021: Left calf swelling and redness improving, softer today, fever resolv ed, WBC resolving, blood cultures negative. Continue current antibiotic therapy. 03/01/2021 left calf swelling/abscess opened spontaneously on 02/28/2021 and draining bloodstained purulence copiously, surgery planning for IND. Fever resolved. Leukocytosis resolved. Blood cultures negative to date. Wound culture sent today. History Interval history: Abscess in left calf openedspontaneously last night and draining bloodstained purulence. Fever resolved. Leukocytosis resolved. Pain improved. General surgery planning for IND. Eating only juices and pudding. Appetite down. But no significant diarrhea. Hospitalist Physical - Constitutional Vitals: Temp Pulse Resp BP Pulse Ox 98.5 F 52 L 18 131/83 97 03/01/21 04:57 03/01/21 04:57 03/01/21 04:57 03/01/21 04:57 03/01/21 14:57 General appearance: Present: no acute distress, well-nourished - EENT Eyes: Present: PERRL, EOM intact ENT: clear oral mucosa - Neck Neck: Present: supple - Respiratory Respiratory effort: normal Respiratory: bilateral: CTA - Cardiovascular Rhythm: regular - Extremities Extremity abnormal: other (Left calf swelling is now soft, erythema improved, the scabbed lesion is no open draining bloodstained purulence which could be easily expressed manually.) - Abdominal General gastrointestinal: soft, non-tender - Integumentary Integumentary: Absent: rash - Psychiatric Psychiatric: appropriate mood/affect - Neurologic Neurologic: no focal deficits Results - Labs CBC & Chem 7: 02/28/21 10:42 02/28/21 10:42 Labs: Laboratory Last Values WBC 10.8 K/mm3 (4.5-11.0) 02/28/21 10:42 RBC 3.82 M/mm3 (3.65-5.03) 02/28/21 10:42 Hgb 12.1 gm/dl (11.8-15.2) 02/28/21 10:42 Hct 35.3 % (35.5-45.6) L 02/28/21 10:42 MCV 92 fl (84-94) 02/28/21 10:42 MCH 32 pg (28-32) 02/28/21 10:42 MCHC 34 % (32-34) 02/28/21 10:42 RDW 12.9 % (13.2-15.2) L 02/28/21 10:42 Plt Count 225 K/mm3 (140-440) 02/28/21 10:42 Lymph % (Auto) 16.8 % (13.4-35.0) 02/28/21 10:42 [place] % (Auto) 10.7 % (0.0-7.3) H 02/28/21 10:42 Eos % (Auto) 0.3 % (0.0-4.3) 02/28/21 10:42 Baso % (Auto) 0.2 % (0.0-1.8) 02/28/21 10:42 Lymph # (Auto) 1.8 K/mm3 (1.2-5.4) 02/28/21 10:42 [place] # (Auto) 1.2 K/mm3 (0.0-0.8) H 02/28/21 10:42 Eos # (Auto) 0.0 K/mm3 (0.0-0.4) 02/28/21 10:42 Baso # (Auto) 0.0 K/mm3 (0.0-0.1) 02/28/21 10:42 Add Manual Diff Complete 02/25/21 04:40 Total Counted 100 02/25/21 04:40 Seg Neutrophils % 72.0 % (40.0-70.0) H 02/28/21 10:42 Seg Neuts % (Manual) 75.0 % (40.0-70.0) H 02/25/21 04:40 Band Neutrophils % 2.0 % 02/25/21 04:40 Lymphocytes % (Manual) 6.0 % (13.4-35.0) L 02/25/21 04:40 Monocytes % (Manual) 17.0 % (0.0-7.3) H 02/25/21 04:40 Nucleated RBC % Not Reportable 02/25/21 04:40 Seg Neutrophils # 7.8 K/mm3 (1.8-7.7) H 02/28/21 10:42 Seg Neutrophils # Man 15.2 K/mm3 (1.8-7.7) H 02/25/21 04:40 Band Neutrophils # 0.4 K/mm3 02/25/21 04:40 Lymphocytes # (Manual) 1.2 K/mm3 (1.2-5.4) 02/25/21 04:40 Abs React Lymphs (Man) 0.0 K/mm3 02/25/21 04:40 Monocytes # (Manual) 3.5 K/mm3 (0.0-0.8) H 02/25/21 04:40 Eosinophils # (Manual) 0.0 K/mm3 (0.0-0.4) 02/25/21 04:40 Basophils # (Manual) 0.0 K/mm3 (0.0-0.1) 02/25/21 04:40 Metamyelocytes # 0.0 K/mm3 02/25/21 04:40 Myelocytes # 0.0 K/mm3 02/25/21 04:40 Promyelocytes # 0.0 K/mm3 02/25/21 04:40 Blast Cells # 0.0 K/mm3 02/25/21 04:40 WBC Morphology Not Reportable 02/25/21 04:40 Hypersegmented Neuts Not Reportable 02/25/21 04:40 Hyposegmented Neuts Not Reportable 02/25/21 04:40 Hypogranular Neuts Not Reportable 02/25/21 04:40 Smudge Cells Not Reportable 02/25/21 04:40 Toxic Granulation Not Reportable 02/25/21 04:40 Toxic Vacuolation Not Reportable 02/25/21 04:40 Dohle Bodies Not Reportable 02/25/21 04:40 Pelger-Huet Anomaly Not Reportable 02/25/21 04:40 Scooter Rods Not Reportable 02/25/21 04:40 Platelet Estimate Consistent w auto 02/25/21 04:40 Clumped Platelets Not Reportable 02/25/21 04:40 Plt Clumps, EDTA Not Reportable 02/25/21 04:40 Large Platelets Not Reportable 02/25/21 04:40 Giant Platelets Not Reportable 02/25/21 04:40 Platelet Satelliting Not Reportable 02/25/21 04:40 Plt Morphology Comment Not Reportable 02/25/21 04:40 RBC Morphology Normal 02/25/21 04:40 Dimorphic RBCs Not Reportable 02/25/21 04:40 Polychromasia Not Reportable 02/25/21 04:40 Hypochromasia Not Reportable 02/25/21 04:40 Poikilocytosis Not Reportable 02/25/21 04:40 Anisocytosis Not Reportable 02/25/21 04:40 Microcytosis Not Reportable 02/25/21 04:40 Macrocytosis Not Reportable 02/25/21 04:40 Spherocytes Not Reportable 02/25/21 04:40 Pappenheimer Bodies Not Reportable 02/25/21 04:40 Sickle Cells Not Reportable 02/25/21 04:40 Target Cells Not Reportable 02/25/21 04:40 Tear Drop Cells Not Reportable 02/25/21 04:40 Ovalocytes Not Reportable 02/25/21 04:40 Helmet Cells Not Reportable 02/25/21 04:40 [place] Bodies Not Reportable 02/25/21 04:40 [place] Rings Not Reportable 02/25/21 04:40 Konstantin Cells Not Reportable 02/25/21 04:40 Bite Cells Not Reportable 02/25/21 04:40 Crenated Cell Not Reportable 02/25/21 04:40 Elliptocytes Not Reportable 02/25/21 04:40 Acanthocytes (Spur) Not Reportable 02/25/21 04:40 Rouleaux Not Reportable 02/25/21 04:40 Hemoglobin C Crystals Not Reportable 02/25/21 04:40 Schistocytes Not Reportable 02/25/21 04:40 Malaria parasites Not Reportable 02/25/21 04:40 David Bodies Not Reportable 02/25/21 04:40 Hem Pathologist Commnt No 02/25/21 04:40 Sodium 142 mmol/L (137-145) 02/28/21 10:42 Potassium 3.7 mmol/L (3.6-5.0) 02/28/21 10:42 Chloride 106.2 mmol/L (98-107) 02/28/21 10:42 Carbon Dioxide 25 mmol/L (22-30) 02/28/21 10:42 Anion Gap 15 mmol/L 02/28/21 10:42 BUN 5 mg/dL (9-20) L 02/28/21 10:42 Creatinine 0.7 mg/dL (0.8-1.3) L 02/28/21 10:42 Estimated GFR > 60 ml/min 02/28/21 10:42 BUN/Creatinine Ratio 7 % 02/28/21 10:42 Glucose 100 mg/dL (75-100) 02/28/21 10:42 Hemoglobin A1c 5.1 % (4-6) 02/25/21 04:45 Lactic Acid 1.80 mmol/L (0.7-2.0) 02/24/21 17:22 Calcium 8.7 mg/dL (8.4-10.2) 02/28/21 10:42 Magnesium 1.70 mg/dL (1.7-2.3) 02/24/21 17:11 Total Bilirubin 0.40 mg/dL (0.1-1.2) 02/28/21 10:42 AST 11 units/L (5-40) 02/28/21 10:42 ALT 9 units/L (7-56) 02/28/21 10:42 Alkaline Phosphatase 69 units/L (35-129) 02/28/21 10:42 Total Creatine Kinase 161 units/L (55-170) 02/24/21 17:11 Total Protein 5.6 g/dL (6.3-8.2) L 02/28/21 10:42 Albumin 3.5 g/dL (3.9-5) L 02/28/21 10:42 Albumin/Globulin Ratio 1.7 % 02/28/21 10:42 Vancomycin Trough 8.7 ug/mL (5.0-20.0) 02/27/21 05:00 Microbiology: Microbiology 02/24/21 17:11 Peripheral/Venous Blood Culture - Preliminary NO GROWTH AFTER 4 DAYS 02/24/21 17:11 Peripheral/Venous Blood Culture - Preliminary NO GROWTH AFTER 4 DAYS [place]/IV: Voiding Method Urinal Active Medications - Current Medications Current Medications: Generic Name Dose Route Start Last Admin Trade Name Freq PRN Reason Stop Dose Admin Acetaminophen 650 mg 02/24/21 20:31 03/01/21 17:34 Acetaminophen 325 Mg Tab PO 650 mg Q4H PRN Administration Pain MILD(1-3)/Fever >100.5/RUBI Heparin Sodium (Porcine) 5,000 unit 02/24/21 22:00 03/01/21 09:53 Heparin 5,000 Unit/1 Ml Vial SUB-Q 5,000 unit Q12HR ZAN Administration Hydromorphone HCl 0.5 mg 02/24/21 20:31 03/01/21 13:51 Hydromorphone 1 Mg/1 Ml Inj IV 0.5 mg Q3H PRN Administration Pain , Severe (7-10) Sodium Chloride 1,000 mls @ 75 mls/hr 02/24/21 20:45 03/01/21 01:17 Nacl 0.9% 1000 Ml IV 75 mls/hr DIRECT ZAN Administration Ampicillin Sodium/Sulbactam Sodium 3 gm in 100 mls @ 100 mls/hr 02/25/21 00:00 03/01/21 17:23 Unasyn/Ns 3 Gm/100 Ml IV 100 mls/hr Q6HR ZAN Administration Protocol Vancomycin HCl 1,500 mg/ 530 mls @ 333.333 mls/hr 02/27/21 18:00 03/01/21 17:34 Sodium Chloride IV 333.333 mls/hr Q12H ZAN Administration Metoclopramide HCl 10 mg 10/30/21 20:31 Metoclopramide 10 Mg/2 Ml Inj IV Q6H PRN Nausea And Vomiting Ondansetron HCl 4 mg 02/24/21 20:31 02/26/21 15:12 Ondansetron 4 Mg/2 Ml Inj IV 4 mg Q8H PRN Administration Nausea And Vomiting Oxycodone/Acetaminophen 1 tab 02/24/21 20:31 03/01/21 09:53 Oxycodone /Acetaminophen 5-325mg Tab PO 1 tab Q6H PRN Administration Pain, Moderate (4-6) Sodium Chloride 10 ml 02/24/21 22:00 03/01/21 13:51 Sodium Chloride 0.9% 10 Ml Flush Syringe IV 10 ml BID ZAN Administration Sodium Chloride 10 ml 02/24/21 20:31 Sodium Chloride 0.9% 10 Ml Flush Syringe IV PRN PRN LINE FLUSH Nutrition/Malnutrition Assess - Dietary Evaluation Nutrition/Malnutrition Findings: Nutrition Notes Start: 03/01/21 17:01 Freq: Status: Active Protocol: Document 03/01/21 17:01 GB (Rec: 03/01/21 17:19 GB [id number]) Nutrition Notes Need for Assessment generated from: LOS Initial or Follow up Assessment Current Diagnosis Sepsis Other Pertinent Diagnosis LLE cellulitis Current Diet Regular Labs/Tests 02/28: BUN 5, creatinine 0.7 Pertinent Medications Ampicillin Na/sulbactam Na, Vancomycin HCl/NaCl Height 5 ft 8 in Weight 62.3 kg [place] Body Weight (kg) 70.00 BMI 20.9 Intake Prior to Admission Good Weight change and time frame 02/24: 61.235kg 03/01: 62.3kg Change of +1.065kg for +1.7% gain. Weight Status Appropriate Subjective/Other Information MD note 03/01: okay to d/c per infectious disease perspective . Acute sepsis resolved. PO intake recorded averages 50 % of meals with refusals. Last BM 02/28 Percent of energy/protein needs met: 75% of minimal EEN not met with current PO intake Burn Absent Trauma Absent GI Symptoms None Food Allergy No Skin Integrity/Comment wound to LLE Current % PO Poor (25-49%) Minimum of two criteria No #1 Nutrition Diagnosis Increased nutrient needs ( specify in comment below) Etiology Cellulitis As Evidenced by Signs and Symptoms Wound to left calf, LLE cellulitis Is patient on ventilator? No Is Patient Ambulatory and/or Out of Bed Yes REE-([place] or-ambulatory/OOB) [ 2030.250 NUTR.[id number]] Kcal/Kg value to use for calculation 30 Approximate Energy Requirements Using 1869 kcal/Kg Calculation Used for Recommendations Kcal/kg Additional Notes Protein 1-1.2 g/kg @ 62k- 74g Fluids: 1 ml/kcal or per MD Nutrition Intervention Change Diet Order: continue Regular Nutrition Support: n/a Add Supplement/Snack (indicate name/kcal ensure enlive BID for added /protein ) kcal and protein r/t poor po intake and increased needs w/ wound Provides kCal: 700 Provides Protein (gm) 40 Goal #1 PO intake of meals to improve to 75% daily during LOS Follow-Up By: 03/08/21 Additional Comments f/u: PO intake meals, supplements
--- NOTE | 2021-03-01 18:25 | Progress Note ---
Assessment and Plan - Patient Problems (1) Left leg cellulitis Current Visit: Yes Status: Acute (2) Abscess of left leg Current Visit: Yes Status: Acute Plan to address problem: 1) NPO after MN 2) I&D of left posterior calf tomorrow Subjective Date of service: 03/01/21 Narrative: Noted to have spontaneous drainage from the posterior left leg today. Objective Vital Signs - 12hr 03/01/21 14:57 O2 Sat by Pulse 97 Oximetry - Integumentary other (There is mostly bloody drainage from a 1 mm opening of the left posterior calf. The area around the opening is somewhat fluctuant.) - Labs 02/28/21 10:42 02/28/21 10:42
[2021-03-02] MEDS: AMPICILLIN/SULBACTA 3GM/100ML 3 GM/100 ML BAG IV SCH ×3 (05:04→17:12)
[2021-03-02] MEDS: VANCOMYCIN 1,500 MG in SODIUM CHLORIDE 0.9% 500 ML 500 ML IV SCH ×2 (05:04→17:12)
[2021-03-02] MEDS: SODIUM CHLORIDE 0.9% 1000 ML 1,000 ML IV SCH (05:05)
[2021-03-02] MEDS: HEPARIN 5,000 UNIT/1 ML VIAL SUB-Q SCH ×2 (09:36→21:35)
[2021-03-02] MEDS: HYDROmorphone 1 MG/1 ML INJ IV PRN ×4 (12:26→23:54)
--- NOTE | 2021-03-02 13:26 | Progress Note ---
Assessment and Plan Cultures: Blood culture no growth so far A/P: 30 yo M PMHx asthma presented to the hospital with LLE cellulitis #Acute sepsis: with fevers and leukocytosis. Secondary to LLE cellulitis. Resolved #LLE cellulitis: significant erythema and swelling. Drainage present but CT without abscess. Recs: -Continue vancomycin and Unasyn for now -s/p I&D with bloody drainage -He is improved, okay for DC from infectious disease perspective -Likely DC with Bactrim DS q12h and Keflex 500mg q6h to complete 10 days total when improved. Bactrim is free at [facility] if necessary Thank you for the consult, we will sign off. Please call with questions Cherise Fonseca MD [facility] [place] ([facility]) O: [phone] F: [phone] Subjective Date of service: 03/02/21 Interval history: Was taken for I&D yesterday. Otherwise afebrile. Objective - Exam Narrative Exam: Physical Exam: Constitutional: Alert, cooperative. No acute distress Head, Ears, Nose: Normocephalic, atraumatic. External ears, nose normal Eyes: Conjunctivae/corneas clear. No icterus. No ptosis. Neck: Supple, no meningeal signs Oral: dentition fair, no thrush Cardiovascular: S1, S2 normal. Respiratory: Good air entry, clear to auscultation bilaterally GI: Soft, non-tender; bowel sounds normal. No peritoneal signs. Musculoskeletal: Left lower leg redness, swelling. Evidence of possibly drained posterior abscess Skin: No rash or abscess Hem/Lymphatic: No palpable cervical or supraclavicular nodes. No lymphangitis Psych: Mood ok. Affect normal Neurological: Awake, alert, oriented. No gross abnormality - Constitutional Vitals: Vital Signs Temp Pulse Resp BP Pulse Ox 97.6 F 53 L 18 117/61 100 03/02/21 04:57 03/02/21 04:57 03/02/21 04:57 03/02/21 04:57 03/02/21 04:57 Temperature -Last 24 Hours Temperature 97.6 F Temperature 99.1 F Temperature 99.5 F - Labs CBC & Chem 7: 02/28/21 10:42 02/28/21 10:42
[2021-03-02] MEDS ORDERED: GLYCOPYRROLATE 0.4 MG/2 ML INJ ONE (15:00)
[2021-03-02] MEDS ORDERED: BUPIVACAINE/PF (0.5%) 5 MG/1 ML 30 ML VIAL INFILTRATI ONE ×4 (15:00→15:37)
[2021-03-02] MEDS ORDERED: MIDAZOLAM 2 MG/2 ML INJ ONE ×2 (15:02→15:37)
[2021-03-02] MEDS ORDERED: propofoL 200 MG/20 ML VIAL IV ONE (15:02)
[2021-03-02] MEDS ORDERED: LIDOCAINE MPF (2%) 20 MG/1 ML VIAL 5 ML ONE (15:02)
[2021-03-02] MEDS ORDERED: SODIUM CHLORIDE P/F VIAL 10 ML 10 ML ONE (15:03)
[2021-03-02] MEDS ORDERED: SODIUM CHLORIDE 0.9% IRR 1,500 ML BOTTLE IR ONE ×2 (15:37)
--- NOTE | 2021-03-02 15:57 | Procedure Note ---
Date of procedure: 03/02/21 Pre-op diagnosis: Left leg abscess Post-op diagnosis: same Procedure: I&D of deep left leg abscess Anesthesia: MAC Surgeon: SNOW WEBB Estimated blood loss: minimal Pathology: list (C&S) Specimen disposition: to lab Condition: stable Disposition: PACU
--- NOTE | 2021-03-02 16:57 | Post Anesthesia Evaluation ---
- Post Anesthesia Evaluation Patient Participated: Yes Airway Patent: Yes Stable Respiratory Function: Yes Nausea/Vomiting: No Temp > 96.8F: Yes Pain Manageable: Yes Adequeate Hydration: Yes Anesthesia Complications: No Block Receding Appropriately: Not Applicable Patient on Ventilator: No
[2021-03-02] MEDS: oxyCODONE /ACETAMINOPHEN 5-325MG TAB PO PRN (21:35)
[2021-03-03] MEDS: oxyCODONE /ACETAMINOPHEN 5-325MG TAB PO PRN ×3 (03:23→17:49)
[2021-03-03] MEDS: AMPICILLIN/SULBACTA 3GM/100ML 3 GM/100 ML BAG IV SCH ×3 (05:42→11:06)
[2021-03-03] MEDS: ACETAMINOPHEN 325 MG TAB PO PRN (06:39)
[2021-03-03] MEDS: VANCOMYCIN 1,500 MG in SODIUM CHLORIDE 0.9% 500 ML 500 ML IV SCH (06:41)
[2021-03-03] MEDS: HEPARIN 5,000 UNIT/1 ML VIAL SUB-Q SCH (10:46)
[2021-03-03] MEDS ORDERED: SODIUM HYPOCHLORITE, DAKIN'S FULL STRENGTH (0.5%) 473 ML TOPICAL SOLN TP PRN (15:12)
--- NOTE | 2021-03-03 15:16 | Progress Note ---
Assessment and Plan - Patient Problems (1) Left leg cellulitis Current Visit: Yes Status: Acute (2) Abscess of left leg Current Visit: Yes Status: Acute Plan to address problem: 1) May be discharged from my perspective. 2) F/u in Wound clinic 3) Antibiotics per ID vs C&S results 4) Narcotic of choice 5) Bid wet to dry dressing changes with 0.5% Dakin's solution. Subjective Date of service: 03/03/21 Patient Reports: Positive: no new complaints, feels better, pain is less Objective - Musculoskeletal other (Left leg dressing is c/d/i.) - Labs 02/28/21 10:42 02/28/21 10:42
[2021-03-03 16:09] VITALS: BP 118/72
--- NOTE | 2021-03-03 16:31 | Progress Note ---
Assessment and Plan - Patient Problems (1) Sepsis Current Visit: Yes Status: Acute Plan to address problem: infection left lower extremities with cellulitis/abscess Aggressive antibiotic therapy No signs of necrotizing fasciitis Patient going for I&D today (2) Left leg cellulitis Current Visit: Yes Status: Acute Plan to address problem: Patient initiated on IV vancomycin and IV Unasyn May need incision and drainage Surgery consult appreciated Patient going for incision and drainage to the operating room today (3) DVT prophylaxis Current Visit: No Status: Acute Plan to address problem: Continue anticoagulation and GI prophylaxis Subjective Date of service: 03/02/21 Principal diagnosis: Leg cellulitis/abscess Interval history: 30-year-old -[place] male with no significant past medical history except for asthma comes in for left lower extremity swelling below the knee associated with redness and severe pain pain is about 10 on a scale of 1-10 th ere is a small puncture wound with drainage. Erythema present on the upper calf to the Achilles tendon. Tight and swollen. Has fever and chills. History Interval history: Abscess in left calf openedspontaneously last night and draining bloodstained purulence. Fever resolved. Leukocytosis resolved. Pain improved. General surgery planning for IND. Eating only juices and pudding. Appetite down. But no significant diarrhea. Daily clinical course: 02/25/21: cont empiric abx, follow cx, follow surgery recommendation 02/26/21: swelling slightly improved, but still c/o pain, blood cx neg. no surgical intervention needed. cont empiric abx. 02/27/2021: Patient will have significant left calf swelling, induration, erythem a and pain. However, fever/chills resolved and the WBC improving, from a 19-16. Blood cultures negative. Still concerning for abscess, may need to repeat CT scan with IV contrast per ID recommendations. General surgery following. 02/28/2021: Left calf swelling and redness improving, softer today, fever resolved, WBC resolving, blood cultures negative. Continue current antibiotic therapy. 03/01/2021 left calf swelling/abscess opened spontaneously on 02/28/2021 and draining bloodstained purulence copiously, surgery planning for IND. Fever resolved. Leukocytosis resolved. Blood cultures negative to date. Wound culture sent today. 03/02/2021 Patient went to operating room for incision and drainage of the abscess on the left lower extremity Objective - Constitutional Vitals: Vital Signs - 12hr 03/03/21 03/03/21 03/03/21 12:07 12:08 16:07 Temperature 98.5 F 98.5 F Pulse Rate 66 85 64 Respiratory 19 19 Rate Blood Pressure 126/86 118/72 O2 Sat by Pulse 100 100 100 Oximetry General appearance: Present: no acute distress, well-nourished - EENT Eyes: PERRL, EOM intact ENT: hearing intact, clear oral mucosa Ears: bilateral: normal - Neck Neck: supple, normal ROM - Respiratory Respiratory effort: normal Respiratory: bilateral: CTA - Breasts Breasts: normal - Cardiovascular Heart rate: 78 Rhythm: regular Heart Sounds: Present: S1 & S2. Absent: gallop, rub Extremities: pulses intact, No edema, normal color, Full ROM - Gastrointestinal General gastrointestinal: Present: soft, non-tender, non-distended, normal bowel sounds - Genitourinary Male genitourinary: normal - Integumentary Integumentary: clear, warm, dry - Musculoskeletal Musculoskeletal: 1, strength equal bilaterally - Neurologic Neurologic: moves all extremities - Psychiatric Psychiatric: memory intact, appropriate mood/affect, intact judgment & insight - Allied health notes Allied health notes reviewed: nursing, case management - Labs CBC & Chem 7: 02/28/21 10:42 02/28/21 10:42
--- NOTE | 2021-03-03 16:39 | Discharge Summary ---
Providers - Providers Date of Admission: 02/24/21 19:31 Date of discharge: 03/03/21 Attending physician: CAT LAI 02/24/21 19:22 Consult to Physician [CONS] Urgent Comment: Consulting Provider: SNOW WEBB Physician Instructions: Reason For Exam: left leg cellulitis vs myositis 02/26/21 16:06 Consult to Physician [CONS] Routine Comment: Consulting Provider: TAMI FOLEY Physician Instructions: Reason For Exam: cellulitis 02/27/21 00:01 Physical Therapy Evaluation and Treat [CONS] Routine Comment: Reason For Exam: Debility Primary care physician: [employer] Hospitalization Condition: Good Hospital course: Daily clinical course: 02/25/21: cont empiric abx, follow cx, follow surgery recommendation 02/26/21: swelling slightly improved, but still c/o pain, blood cx neg. no surgical intervention needed. cont empiric abx. 02/27/2021: Patient will have significant left calf swelling, induration, e rythema and pain. However, fever/chills resolved and the WBC improving, from a 19-16. Blood cultures negative. Still concerning for abscess, may need to repeat CT scan with IV contrast per ID recommendations. General surgery following. 02/28/2021: Left calf swelling and redness improving, softer today, fever resolved, WBC resolving, blood cultures negative. Continue current antibiotic therapy. 03/01/2021 left calf swelling/abscess opened spontaneously on 02/28/2021 and draining bloodstained purulence copiously, surgery planning for IND. Fever resolved. Leukocytosis resolved. Blood cultures negative to date. Wound culture sent today. 03/02/2021 Patient went to operating room for incision and drainage of the abscess on the left lower extremity 03/03/2021 Patient had incision and drainage yesterday. Less pain today. Assessment and Plan - Patient Problems (1) Sepsis Current Visit: Yes Status: Acute Plan to address problem: infection left lower extremities with cellulitis/abscess Aggressive antibiotic therapy No signs of necrotizing fasciitis Patient going for I&D today (2) Left leg cellulitis Current Visit: Yes Status: Acute Plan to address problem: Had incision and drainage yesterday Postop doing well (3) DVT prophylaxis Current Visit: No Status: Acute Plan to address problem: Continue anticoagulation and GI prophylaxis Subjective Date of service: 03/02/21 Principal diagnosis: Leg cellulitis/abscess Interval history: 30-year-old -Irish male with no significant past medical history except for asthma comes in for left lower extremity swelling below the knee associated with redness and severe pain pain is about 10 on a scale of 1-10 there is a small puncture wound with drainage. Erythema present on the upper calf to the Achilles tendon. Tight and swollen. Has fever and chills. Disposition: 01 HOME / SELF CARE / HOMELESS Final Discharge Diagnosis (Prints w/discharge instructions): Sepsis. Left lower extremity cellulitis. Left lower extremity abscess Time spent for discharge: 32 minutes - Discharge Diagnoses (1) Sepsis Status: Acute (2) Left leg cellulitis Status: Acute (3) DVT prophylaxis Status: Acute Core Measure Documentation - Palliative Care Palliative Care/ Comfort Measures: Not Applicable - Core Measures Any of the following diagnoses?: none Exam - Constitutional Vitals: Temp Pulse Resp BP Pulse Ox 98.5 F 64 19 118/72 100 03/03/21 16:07 03/03/21 16:07 03/03/21 16:07 03/03/21 16:07 03/03/21 16:07 General appearance: Present: no acute distress, well-nourished - EENT Eyes: Present: PERRL ENT: hearing intact, clear oral mucosa - Neck Neck: Present: supple, normal ROM - Respiratory Respiratory effort: normal Respiratory: bilateral: CTA - Cardiovascular Heart rate: 78 Rhythm: regular Heart Sounds: Present: S1 & S2. Absent: rub, click - Extremities Extremities: pulses symmetrical, No edema Peripheral Pulses: within normal limits - Abdominal General gastrointestinal: Present: soft, non-tender, non-distended, normal bowel sounds Male genitourinary: Present: normal - Integumentary Integumentary: Present: clear, warm, dry - Musculoskeletal Musculoskeletal: gait normal, strength equal bilaterally - Psychiatric Psychiatric: appropriate mood/affect, intact judgment & insight - Neurologic Neurologic: CNII-XII intact, moves all extremities - Allied Health Allied health notes reviewed: nursing, case management Plan Activity: no restrictions Diet: regular Follow up with: YAZAN BETANCOURT MD [Primary Care Provider] - 3-5 Days SNOW WEBB MD [Staff Physician] - 7 Days
== END 2021-03-03 18:11 | disposition home or self-care (01) | DRG 872 ==
LOC: ED 16:15 → OBSVTOIN 19:31 → 3A 19:31
PROVIDERS: ADMIT Internal Medicine; ATTEND Internal Medicine
PROC: 0H9LXZZ Drainage of Left Lower Leg Skin, External Approach (ICD-10-PCS; principal; 2021-03-02)
DX: A41.9 Sepsis, unspecified organism (principal); L03.116 Cellulitis of left lower limb; L02.416 Cutaneous abscess of left lower limb; F17.200 Nicotine dependence, unspecified, uncomplicated; F41.9 Anxiety disorder, unspecified; Z20.822 Contact with and (suspected) exposure to COVID-19
CPT/HCPCS: 36415; 80048; 80053; 80202; 82140; 82550; 83036; 83735; 85007; 85025; 86403; 87040; 87075; 87076; 87116; 87186; 90715; G0378; J0295; J0696; J1170; J1644; J2250; J2405; J2704; J3370; J3490; J7030; J7040; J7050; Q9967

== ENCOUNTER 2021-03-05 12:48 | Emergency (ER) | payer SELFPAY ==
[2021-03-05 14:08] VITALS: BP 134/75
--- NOTE | 2021-03-05 14:09 | Emergency Department Report ---
ED General Adult HPI - General Chief complaint: Extremity Injury, Lower Stated complaint: HAD SURGERY 03/01 AREA PAIN Time Seen by Provider: 03/05/21 13:45 Source: patient Mode of arrival: Ambulatory Limitations: No Limitations - History of Present Illness Initial comments: 30-year-old male presents to the ER today with complaints of pain in his left leg/calf. Patient was recently discharged from the hospital on 03/03 after being admitted for sepsis, left calf abscess, and left leg cellulitis. Patient had abscess surgically I&D by Dr. Chen. He received aggressive IV antibiotics during his stay, Blood cultures were negative and he was discharged home on what appears to be Levaquin. Patient was instructed to follow-up with Dr. Chen in 7 days. Patient states that he is unable to follow-up because he does not have the funds not insurance to follow-up. He states that the pain in his left leg is sharp and intermittent. He has been having similar pain since the being discharged from the hospital but states that this feels like is more intense. He states that he has not removed the dressing that was placed since the surgery and therefore unable to tell what the wound looks like. He states that he has been compliant with taking the antibiotics that he was prescribed and he was also given something for pain to take every 6 hours which he has been taking but he states not really helping the sharp intense pain. He reports some pain with ambulation. He states that the swelling that he had has improved, as well as the redness. He denies any fever or chills since being discharged denies any chest pain or shortness of breath. MD Complaint: Left leg pain/wound left calf -: days(s) - Related Data Previous Rx's Medication Instructions Recorded Last Taken Type Ketorolac [Toradol] 10 mg PO TID PRN #15 tablet 02/15/21 Unknown Rx Ondansetron [Zofran Odt] 4 mg PO Q8HR #15 tab.rapdis 02/15/21 Unknown Rx Pantoprazole [Protonix] 40 mg PO QDAY #30 tablet 02/15/21 Unknown Rx levoFLOXacin [Levaquin] 750 mg PO QDAY #10 tablet 03/03/21 Unknown Rx traMADoL [Ultram 50 MG tab] 50 mg PO Q6HR PRN #20 tablet 03/03/21 Unknown Rx Allergies Allergy/AdvReac Type Severity Reaction Status Date / Time No Known Allergies Allergy Verified 02/24/21 16:17 ED Review of Systems ROS: Stated complaint: HAD SURGERY 03/01 AREA PAIN Other details as noted in HPI Comment: All other systems reviewed and negative Constitutional: denies: chills, fever Eyes: denies: eye pain, eye discharge, vision change ENT: denies: ear pain, throat pain Respiratory: denies: cough, shortness of breath, SOB with exertion, SOB at rest, wheezing Cardiovascular: denies: chest pain, palpitations Gastrointestinal: denies: abdominal pain, nausea, diarrhea, constipation, hematemesis, melena, hematochezia Genitourinary: denies: urgency, dysuria Musculoskeletal: arthralgia, myalgia Skin: other (wound posterior left leg). denies: rash, lesions Neurological: denies: headache, weakness, numbness, paresthesias, confusion, abnormal gait, vertigo Psychiatric: as per HPI. denies: auditory hallucinations, visual hallucinations, homicidal thoughts, suicidal thoughts Hematological/Lymphatic: denies: as per HPI, easy bleeding, easy bruising ED Past Medical Hx - Past Medical History Previous Medical History?: Yes Hx Hypertension: No Hx Heart Attack/AMI: No Hx Liver Disease: No Hx Renal Disease: No Hx Asthma: Yes (Has not needed inhaler in "several years.") - Surgical History Past Surgical History?: Yes Additional Surgical History: left leg - Social History Smoking Status: Never Smoker - Medications Home Medications: Home Medications Medication Instructions Recorded Confirmed Last Taken Type Ketorolac [Toradol] 10 mg PO TID PRN #15 tablet 02/15/21 02/25/21 Unknown Rx Ondansetron [Zofran Odt] 4 mg PO Q8HR #15 tab.rapdis 02/15/21 02/25/21 Unknown Rx Pantoprazole [Protonix] 40 mg PO QDAY #30 tablet 02/15/21 02/25/21 Unknown Rx levoFLOXacin [Levaquin] 750 mg PO QDAY #10 tablet 03/03/21 Unknown Rx traMADoL [Ultram 50 MG tab] 50 mg PO Q6HR PRN #20 tablet 03/03/21 Unknown Rx ED Physical Exam - General Limitations: No Limitations General appearance: alert, in no apparent distress - Head Head exam: Present: atraumatic, normocephalic, normal inspection - Eye Eye exam: Present: normal appearance, PERRL, EOMI Pupils: Present: normal accommodation - Neck Neck exam: Present: normal inspection, full ROM - Respiratory Respiratory exam: Present: normal lung sounds bilaterally. Absent: respiratory distress, wheezes, rales, rhonchi - Cardiovascular Cardiovascular Exam: Present: regular rate, normal rhythm, normal heart sounds - Extremities Exam Extremities exam: Present: other (s/p recent surgical wound noted to left calf area; gauze packing noted an in place; there is mild swelling and induration mainly around the wound edges but no apparent area of fluctuance, no cellulitis and no drainage. No edema noted to left lower extremity. neurovascularly intact LLE) - Neurological Exam Neurological exam: Present: alert, oriented X3, CN II-XII intact, normal gait - Psychiatric Psychiatric exam: Present: normal affect, normal mood - Skin Skin exam: Present: intact ED Course Vital Signs 03/05/21 13:24 Temperature 98.4 F Pulse Rate 103 H Respiratory 18 Rate Blood Pressure 134/75 O2 Sat by Pulse 98 Oximetry ED Medical Decision Making - Radiology Data Radiology results: report reviewed Patient: SERA LEON MR#: [id number] : 1990 Acct:[id number] Age/Sex: 30 / M ADM Date: 03/05/21 Loc: ED Attending Dr: Ordering Physician: LIZET STONE Date of Service: 03/05/21 Procedure(s): VL venous duplex LE LT Accession Number(s): [id number] cc: LIZET STONE DUPLEX DOPPLER LOWER EXTREMITY VEINS, LEFT INDICATION / CLINICAL INFORMATION: Leg pain/ s/p recent surgery. TECHNIQUE: Duplex doppler imaging was performed through the veins of the left lower extremity using venous compression and other maneuvers. COMPARISON: None available. FINDINGS: LEFT COMMON FEMORAL VEIN: Negative. LEFT FEMORAL VEIN: Negative. LEFT POPLITEAL VEIN: Negative. LEFT CALF VEINS: Negative. ADDITIONAL FINDINGS: None. IMPRESSION: 1. No sonographic evidence for DVT in the left lower extremity. Signer Name: Favian Moore MD Signed: 03/05/2021 2:48 PM Workstation Name: [id number] Transcribed By: TL Dictated By: Favian Moore MD Electronically Authenticated By: Favian Moore MD Signed Date/Time: 03/05/211447 DD/ 46 TD/TT: - Medical Decision Making 1707: Dr Chen saw and evaluated patient's wound. Patient dressing and packing was removed. He agree that wound his healing well. He recommends repacking the wound, applying a dressing and he instructed the patient to follow-up in his office on for reevaluation. Patient could to continue the medications including antibiotic as he has at home. Patient currently not toxic or ill- appearing. He is not in any acute distress. He is neurologically intact. Patient expressed understanding of all instructions and agree with plan. Patient was stable at time of discharge. Critical care attestation.: If time is entered above; I have spent that time in minutes in the direct care of this critically ill patient, excluding procedure time. ED Disposition Clinical Impression: Wound check, abscess, Left leg pain Disposition: HOME / SELF CARE / HOMELESS Is pt being admited?: No Does the pt Need Aspirin: No Condition: Stable Instructions: Wound Care, Adult Additional Instructions: I recommend that you continue taking antibiotics that you have prescribed when you were discharged from the hospital. Continue taking the pain medication I also prescribed when you were discharged. Like Dr. Chen said, you need to try and stay off your leg as often as possible and elevate as often as possible. Also it is important that you follow-up with him in his office on as instructed. Leave the dressing in place until follow-up for return to the ER if your symptoms changes or worsens in any way. Referrals: SNOW CHEN MD [Staff Physician] - 3-5 Days Time of Disposition: 17:51
--- NOTE | 2021-03-05 14:52 | Vascular Lab Report ---
DUPLEX DOPPLER LOWER EXTREMITY VEINS, LEFT INDICATION / CLINICAL INFORMATION: Leg pain/ s/p recent surgery. TECHNIQUE: Duplex doppler imaging was performed through the veins of the left lower extremity using venous compr ession and other maneuvers. COMPARISON: None available. FINDINGS: LEFT COMMON FEMORAL VEIN: Negative. LEFT FEMORAL VEIN: Negative. LEFT POPLITEAL VEIN: Negative. LEFT CALF VEINS: Negative. ADDITIONAL FINDINGS: None. IMPRESSION: 1. No sonographic evidence for DVT in the left lower extremity. Signer Name: Favian Moore MD Signed: 03/05/2021 2:48 PM Workstation Name: [id number]
[2021-03-05] MEDS ORDERED: HYDROcodone/ACETAMINOPHEN 10-325MG TAB PO ONE (14:55)
[2021-03-05] MEDS ORDERED: SODIUM HYPOCHLORITE, DAKIN'S 1/2 STRENGTH (0.25%) 473 ML TOPICAL SOLN TP ONE (17:06)
[2021-03-05] MEDS ORDERED: SODIUM HYPOCHLORITE, DAKIN'S FULL STRENGTH (0.5%) 473 ML TOPICAL SOLN TP NR (17:30)
== END 2021-03-05 18:34 | disposition home or self-care (01) ==
LOC: ED 12:48
DX: Z48.01 Encounter for change or removal of surgical wound dressing (principal); L02.416 Cutaneous abscess of left lower limb; M79.605 Pain in left leg; Z98.890 Other specified postprocedural states
CPT/HCPCS: 99283

== ENCOUNTER 2021-03-16 15:14 | Emergency (ER) | payer SELFPAY ==
[2021-03-16 15:45] VITALS: BP 108/61
--- NOTE | 2021-03-16 15:48 | Emergency Department Report ---
ED Extremity Problem HPI - General Chief complaint: Extremity Injury, Lower Stated complaint: LEG PAIN Time Seen by Provider: 03/16/21 15:24 Source: patient Mode of arrival: Ambulatory Limitations: No Limitations - History of Present Illness Initial comments: Patient is a 30-year-old male presents emergency room with complaints of needing a return to work excuse. He states he would like to return to work on 03/18/21. Patient was evaluated in the emergency department on 02/25/21 was diagnosed with sepsis, cellulitis, abscess and was admitted to the hospital and had a I&D performed by Dr. Chen, general surgery. Patient states he completed his course of Levaquin. Patient states that he saw Dr. Chen in office last week and was advised that it appeared to be healing appropriately. He states he does have some mild itching of the leg and continues to have occasional pain. He denies any increased pain, fever, drainage, vomiting, chills. No allergies to medications. - Related Data Previous Rx's Medication Instructions Recorded Last Taken Type Ketorolac [Toradol] 10 mg PO TID PRN #15 tablet 02/15/21 Unknown Rx Ondansetron [Zofran Odt] 4 mg PO Q8HR #15 tab.rapdis 02/15/21 Unknown Rx Pantoprazole [Protonix] 40 mg PO QDAY #30 tablet 02/15/21 Unknown Rx levoFLOXacin [Levaquin] 750 mg PO QDAY #10 tablet 03/03/21 Unknown Rx traMADoL [Ultram 50 MG tab] 50 mg PO Q6HR PRN #20 tablet 03/03/21 Unknown Rx Allergies Allergy/AdvReac Type Severity Reaction Status Date / Time No Known Allergies Allergy Verified 02/24/21 16:17 ED Review of Systems ROS: Stated complaint: LEG PAIN Other details as noted in HPI Comment: All other systems reviewed and negative ED Past Medical Hx - Past Medical History Hx Hypertension: No Hx Heart Attack/AMI: No Hx Liver Disease: No Hx Renal Disease: No Hx Asthma: Yes (Has not needed inhaler in "several years.") - Surgical History Past Surgical History?: No Additional Surgical History: left leg - Social History Smoking Status: Never Smoker - Medications Home Medications: Home Medications Medication Instructions Recorded Confirmed Last Taken Type Ketorolac [Toradol] 10 mg PO TID PRN #15 tablet 02/15/21 02/25/21 Unknown Rx Ondansetron [Zofran Odt] 4 mg PO Q8HR #15 tab.rapdis 02/15/21 02/25/21 Unknown Rx Pantoprazole [Protonix] 40 mg PO QDAY #30 tablet 02/15/21 02/25/21 Unknown Rx levoFLOXacin [Levaquin] 750 mg PO QDAY #10 tablet 03/03/21 Unknown Rx traMADoL [Ultram 50 MG tab] 50 mg PO Q6HR PRN #20 tablet 03/03/21 Unknown Rx ED Physical Exam - General Limitations: No Limitations General appearance: alert, in no apparent distress - Head Head exam: Present: atraumatic, normocephalic - Eye Eye exam: Present: normal appearance - ENT ENT exam: Present: mucous membranes moist - Respiratory Respiratory exam: Absent: respiratory distress, accessory muscle use - Extremities Exam Extremities exam: Present: other (4 cm opening present to the left posterior calf, there is grannulation tissue forming, no induration, no fluctuance, no drainage, neurovascularly intact, compartments are soft) - Neurological Exam Neurological exam: Present: alert, oriented X3 - Psychiatric Psychiatric exam: Present: normal affect, normal mood - Skin Skin exam: Present: warm, dry ED Course Vital Signs 03/16/21 03/16/21 15:43 15:44 Temperature 98.9 F 98.9 F Pulse Rate 94 H 94 H Respiratory 18 18 Rate Blood Pressure 108/61 Blood Pressure 108/61 [Left] O2 Sat by Pulse 99 99 Oximetry ED Medical Decision Making - Medical Decision Making Patient is a 30-year-old male presents emergency room with complaints of needing a return to work excuse. He states he would like to return to work on 03/18/21. Patient was evaluated in the emergency department on 02/25/21 was diagnosed with sepsis, cellulitis, abscess and was admitted to the hospital and had a I&D performed by Dr. Chen, general surgery. Patient states he completed his course of Levaquin. Patient states that he saw Dr. Chen in office last week and was advised that it appeared to be healing appropriately. He states he does have some mild itching of the leg and continues to have occasional pain. He denies any increased pain, fever, drainage, vomiting, chills. No allergies to medications. Vitals are stable. On exam:4 cm opening present to the left posterior calf, there is grannulation tissue forming, no induration, no fluctuance, no drainage, neurovascularly intact, compartments are soft. It appears to be in the process of healing, no signs of abscess or cellulitis at this time. A new dressing was placed. Patient will be referred to his general surgeon and wound care. Advised pt Please make sure to change your dressing daily. Keep area clean, dry, covered. Wash with antibacterial soap and water and pat dry. No hot tub or pool. Follow-up with Dr. Chen, general surgeon. Follow-up with wound care. Return to emergency room for any new or worsening symptoms. Critical care attestation.: If time is entered above; I have spent that time in minutes in the direct care of this critically ill patient, excluding procedure time. ED Disposition Clinical Impression: Encounter for wound re-check Disposition: 01 HOME / SELF CARE / HOMELESS Is pt being admited?: No Does the pt Need Aspirin: No Condition: Stable Instructions: Wound Care, Adult Additional Instructions: Please make sure to change your dressing daily. Keep area clean, dry, covered. Wash with antibacterial soap and water and pat dry. No hot tub or pool. Follow-up with Dr. Chen, general surgeon. Follow-up with wound care. Return to emergency room for any new or worsening symptoms. Referrals: [facility] [Outside] - 3-5 Days SNOW CHEN MD [Staff Physician] - 3-5 Days Forms: Work/School Release Form(ED) Time of Disposition: 15:47 Print Language: [place]
== END 2021-03-16 16:56 | disposition home or self-care (01) ==
LOC: ED 15:14
DX: L29.9 Pruritus, unspecified (principal); J45.909 Unspecified asthma, uncomplicated
CPT/HCPCS: 99281

== ENCOUNTER 2021-08-18 02:00 | Emergency (ER) | payer SELFPAY ==
[2021-08-18] MEDS ORDERED: SODIUM CHLORIDE 0.9% 1000 ML 1,000 ML IV ONE (03:21)
[2021-08-18] MEDS ORDERED: ONDANSETRON 4 MG/2 ML INJ IV ONE ×2 (03:21→08:47)
[2021-08-18] MEDS ORDERED: MORPHINE 4 MG/1 ML INJ IV ONE (03:21)
[2021-08-18 03:47] LABS: Basophils % (Auto) 0.4 % (0.0-1.8); Hemoglobin 14.7 gm/dl (11.8-15.2); Lymphocytes # (Auto) 1.6 K/mm3 (1.2-5.4); Lymphocytes % (Auto) 12.3 % (13.4-35.0); Mean Corpuscular HGB Conc 33 % (32-34); Mean Corpuscular Volume 94 fl (84-94); Monocytes # (Auto) 0.6 K/mm3 (0.0-0.8); Monocytes % (Auto) 4.4 % (0.0-7.3); Platelet Count 213 K/mm3 (140-440); Red Blood Count 4.68 M/mm3 (3.65-5.03); Red Cell Distribution Width 13.8 % (13.2-15.2)
[2021-08-18 03:56] LABS: Alanine Aminotransferase 18 units/L (7-56); Albumin 5.1 g/dL (3.9-5); BUN/Creatinine Ratio 7; Blood Urea Nitrogen 6 mg/dL (9-20); Calcium 10.1 mg/dL (8.4-10.2); Hemolysis Index 150
[2021-08-18] MEDS ORDERED: KETOROLAC 30 MG/1 ML INJ IV ONE (04:24)
--- NOTE | 2021-08-18 05:53 | Emergency Department Report ---
ED Abdominal Pain HPI - General Chief Complaint: Abdominal Pain Stated Complaint: ABD PAIN Time Seen by Provider: 08/18/21 03:20 Source: patient, EMS Mode of arrival: Stretcher Limitations: No Limitations - History of Present Illness Initial Comments: Abdominal pain and vomiting all day after smoking weed. 25 years old with abdominal pain , he says he always get gall bladder pain when smokes weed no fever no rash Severity scale (0 -10): 9 - Related Data Previous Rx's Medication Instructions Recorded Last Taken Type Ketorolac [Toradol] 10 mg PO TID PRN #15 tablet 02/15/21 Unknown Rx Ondansetron [Zofran Odt] 4 mg PO Q8HR #15 tab.rapdis 02/15/21 Unknown Rx Pantoprazole [Protonix] 40 mg PO QDAY #30 tablet 02/15/21 Unknown Rx levoFLOXacin [Levaquin] 750 mg PO QDAY #10 tablet 03/03/21 Unknown Rx traMADoL [Ultram 50 MG tab] 50 mg PO Q6HR PRN #20 tablet 03/03/21 Unknown Rx Albuterol Mdi (or & Nicu Only) 2 puff IH QID PRN #8.5 gram 08/18/21 Unknown Rx [ProAir HFA Inhaler] Famotidine [Pepcid] 10 mg PO BID #20 tablet 08/18/21 Unknown Rx Ondansetron [Zofran ODT TAB] 8 mg PO Q8HR #20 tab.rapdis 08/18/21 Unknown Rx traMADoL [Ultram] 50 mg PO Q6HR PRN #10 tablet 08/18/21 Unknown Rx Allergies Allergy/AdvReac Type Severity Reaction Status Date / Time No Known Allergies Allergy Verified 02/24/21 16:17 ED Review of Systems ROS: Stated complaint: ABD PAIN Other details as noted in HPI Constitutional: denies: chills, fever Eyes: denies: eye pain, eye discharge, vision change ENT: denies: ear pain, throat pain Respiratory: denies: cough, shortness of breath, wheezing Cardiovascular: denies: chest pain, palpitations Endocrine: no symptoms reported Gastrointestinal: denies: abdominal pain, nausea, diarrhea Genitourinary: denies: urgency, dysuria Musculoskeletal: denies: back pain, joint swelling, arthralgia Skin: denies: rash, lesions Neurological: denies: headache, weakness, paresthesias Psychiatric: denies: anxiety, depression Hematological/Lymphatic: denies: easy bleeding, easy bruising ED Past Medical Hx - Past Medical History Previous Medical History?: Yes Hx Hypertension: No Hx Heart Attack/AMI: No Hx Liver Disease: No Hx Renal Disease: No Hx Asthma: Yes (Has not needed inhaler in "several years.") Additional medical history: Gall bladder disesae - Surgical History Past Surgical History?: Yes Additional Surgical History: left leg - Social History Smoking Status: Current Every Day Smoker Substance Use Type: Marijuana - Medications Home Medications: Home Medications Medication Instructions Recorded Confirmed Last Taken Type Ketorolac [Toradol] 10 mg PO TID PRN #15 tablet 02/15/21 02/25/21 Unknown Rx Ondansetron [Zofran Odt] 4 mg PO Q8HR #15 tab.rapdis 02/15/21 02/25/21 Unknown Rx Pantoprazole [Protonix] 40 mg PO QDAY #30 tablet 02/15/21 02/25/21 Unknown Rx levoFLOXacin [Levaquin] 750 mg PO QDAY #10 tablet 03/03/21 Unknown Rx traMADoL [Ultram 50 MG tab] 50 mg PO Q6HR PRN #20 tablet 03/03/21 Unknown Rx Albuterol Mdi (or & Nicu Only) 2 puff IH QID PRN #8.5 gram 08/18/21 Unknown Rx [ProAir HFA Inhaler] Famotidine [Pepcid] 10 mg PO BID #20 tablet 08/18/21 Unknown Rx Ondansetron [Zofran ODT TAB] 8 mg PO Q8HR #20 tab.rapdis 08/18/21 Unknown Rx traMADoL [Ultram] 50 mg PO Q6HR PRN #10 tablet 08/18/21 Unknown Rx ED Physical Exam - General Limitations: No Limitations General appearance: alert, in no apparent distress - Head Head exam: Present: atraumatic, normocephalic - Eye Eye exam: Present: normal appearance - ENT ENT exam: Present: mucous membranes moist - Neck Neck exam: Present: normal inspection - Respiratory Respiratory exam: Present: normal lung sounds bilaterally. Absent: respiratory distress - Cardiovascular Cardiovascular Exam: Present: regular rate, normal rhythm. Absent: systolic murmur, diastolic murmur, rubs, gallop - GI/Abdominal GI/Abdominal exam: Present: tenderness, normal bowel sounds - Rectal Rectal exam: Present: deferred - Extremities Exam Extremities exam: Present: normal inspection - Back Exam Back exam: Present: normal inspection - Neurological Exam Neurological exam: Present: alert, oriented X3 - Psychiatric Psychiatric exam: Present: normal affect, normal mood - Skin Skin exam: Present: warm, dry, intact, normal color. Absent: rash ED Course Vital Signs 08/18/21 08/18/21 08/18/21 03:04 04:01 04:11 Temperature 98 F 97.7 F Pulse Rate 90 57 L Respiratory 18 20 Rate Blood Pressure 140/90 Blood Pressure 91/53 [Left] O2 Sat by Pulse 99 97 98 Oximetry 08/18/21 09:44 Temperature 97.4 F L Pulse Rate 71 Respiratory 18 Rate Blood Pressure Blood Pressure 108/52 [Left] O2 Sat by Pulse 100 Oximetry ED Medical Decision Making - Lab Data Result diagrams: 08/18/21 03:25 08/18/21 03:25 - Radiology Data Radiology results: report reviewed, image reviewed Critical care attestation.: If time is entered above; I have spent that time in minutes in the direct care of this critically ill patient, excluding procedure time. ED Disposition Clinical Impression: Epigastric pain, Nausea & vomiting Disposition: 01 HOME / SELF CARE / HOMELESS Is pt being admited?: No Does the pt Need Aspirin: No Condition: Stable Instructions: Nausea and Vomiting, Adult Prescriptions: Famotidine [Pepcid] 10 mg PO BID #20 tablet Albuterol Mdi (or & Nicu Only) [ProAir HFA Inhaler] 2 puff IH QID PRN #8.5 gram PRN Reason: Shortness Of Breath traMADoL [Ultram] 50 mg PO Q6HR PRN #10 tablet PRN Reason: Pain Ondansetron [Zofran ODT TAB] 8 mg PO Q8HR #20 tab.rapdis Referrals: JACOB LLANOS MD [Staff Physician] - 3-5 Days PRIMARY CARE, [Primary Care Provider] - 3-5 Days
[2021-08-18 07:49] LABS: Bilirubin,Urine NEG (Negative); Blood,Urine NEG (Negative); Color,Urine Yellow (Yellow); Mucus,Urine FEW /HPF; Urobilinogen,Urine < 2.0 mg/dL (<2.0)
[2021-08-18 07:51] LABS: Amorphous Crystals,Urine 1+
[2021-08-18] MEDS ORDERED: ONDANSETRON 4 MG/2 ML INJ ONE (08:10)
[2021-08-18] MEDS ORDERED: ONDANSETRON 4 MG/2 ML INJ IM ONE (08:21)
--- NOTE | 2021-08-18 08:25 | Cat Scan Report ---
CT ABDOMEN AND PELVIS WITH CONTRAST INDICATION / CLINICAL INFORMATION: pain. TECHNIQUE: Axial CT images were obtained through the abdomen and pelvis after IV contrast. All CT sc ans at this location are performed using CT dose reduction for ALARA by means of automated exposure c ontrol. COMPARISON: 02/13/2021 FINDINGS: LOWER CHEST: No significant abnormality. LIVER: No significant abnormality. GALLBLADDER: No significant abnormality. PANCREAS: No significant abnormality. SPLEEN: No significant abnormality. ADRENALS: No significant abnormality. RIGHT KIDNEY / URETER: No significant abnormality. LEFT KIDNEY / URETER: No significant abnormality. STOMACH / SMALL BOWEL: No significant abnormality. COLON: No significant abnormality. APPENDIX: No significant abnormality. PERITONEUM: No free fluid, free air or organized collection. LYMPH NODES: No significant adenopathy. AORTA / ARTERIES/ VEINS: No significant abnormality. URINARY BLADDER: No significant abnormality. REPRODUCTIVE ORGANS: No significant abnormality. ADDITIONAL FINDINGS: None. SKELETAL SYSTEM: No significant abnormality. IMPRESSION: 1. No acute abnormality. Signer Name: Cullen Wilson MD Signed: 08/18/2021 8:21 AM Workstation Name: [id number]
[2021-08-18] MEDS ORDERED: METOCLOPRAMIDE 10 MG/2 ML INJ IV ONE (09:31)
[2021-08-18 09:49] VITALS: BP 108/52
== END 2021-08-18 10:25 | disposition home or self-care (01) ==
LOC: ED 02:00
DX: R10.13 Epigastric pain (principal); R11.2 Nausea with vomiting, unspecified; J45.909 Unspecified asthma, uncomplicated; Z79.899 Other long term (current) drug therapy; F17.200 Nicotine dependence, unspecified, uncomplicated
CPT/HCPCS: 36415; 74177; 80053; 81001; 83690; 85025; 96361; 96374; 96375; 96376; 99284; J1885; J2270; J2405; J2765; J7030; Q9967

== ENCOUNTER 2021-12-22 13:18 | Emergency (ER) | payer OTHER ==
[2021-12-22 14:33] VITALS: BP 108/90
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
== END 2021-12-22 17:03 | disposition home or self-care (01) ==
LOC: ED 13:18
DX: M25.512 Pain in left shoulder (principal); M54.9 Dorsalgia, unspecified; J45.909 Unspecified asthma, uncomplicated; F17.200 Nicotine dependence, unspecified, uncomplicated; V89.2XXA Person injured in unspecified motor-vehicle accident, traffic, initial encounter; Y93.89 Activity, other specified; Y92.89 Other specified places as the place of occurrence of the external cause; Y99.8 Other external cause status
CPT/HCPCS: 72040; 99283